=== PATIENT | male | born 1945 | race Caucasian/White ===

== ENCOUNTER 2024-06-19 15:57 | Inpatient (IN) | payer MEDICARE, SELFPAY ==
[2024-06-19 16:29] VITALS: BP 130/78; PULSE 77; RESP 18; TEMP 36.6; O2SAT 95; BMI 25.5
[2024-06-19] MEDS: Carbidopa/Levodopa 25/100 Tablet PO (18:39)
--- NOTE | 2024-06-19 20:02 | PCM.HP.STD ---
HPI - General General Date of Admission: 06/19/24 Date of Service: 06/21/24 Chief Complaint: Here for rehabilitation. HPI Narrative HANY NICHOLS, is a 78 Male who presents with followin06/04/2024 ED x-ray left hip, CT lumbar spine showed degenerative changes. Discharged home on Medrol dose pack, Tramadol, Lidoderm patches. 06/15/2024 PCP prescribed prednisone taper. MRI lumbar spine showed multi level degenerative changes similar to CT lumbar spine. Bilateral lumbar foraminal stenosis. 06/16/2024 Admit to [facility] [place] for intractable back pain. Ongoing low back pain radiating to left lateral thigh, pain medications intolerable due to confusion. Denies saddle anesthesia, no loss of bowel or bladder control. unable to care for patient at home, request placement. Pain control, Prednisone taper, Lidoderm patches. PT/OT/CM. Outpatient MRCP for dilated pancreatic duct. 06/17/2024 Back pain, right shoulder pain. Tylenol, Gabapentin, Lidoderm, Toradol, prednisone taper for low back pain. PT/OT/CM. 06/19/2024 Admit to TCU with debility, here for rehabilitation, strengthening, prior to discharge home with . [facility] Medical History (Updated 06/19/24 @ 20:[address] Isidro Titus MD) Essential (primary) hypertension Type 2 diabetes mellitus with hyperglycemia COPD (chronic obstructive pulmonary disease) History of penile cancer Anxiety Depression Lumbar radiculopathy Lumbar spinal stenosis Intractable low back pain Debility Home Medications ?Medication ?Instructions ?Recorded ?Last Taken ?Type Magnesium Chloride 64 mg PO DAILY supplement 06/05/16 06/05/16 History aspirin 81 mg chewable tablet 81 mg PO DAILY@0800 heart 06/05/16 06/19/24 History carbidopa 25 mg-levodopa 100 mg 2 tab PO 4X/DAY parkinsons 06/05/16 06/19/24 History tablet carvedilol 6.25 mg tablet (Coreg) 6.25 mg PO DAILY 06/05/16 09/20/16 History clonazepam 0.5 mg tablet 0.5 mg PO QHS sleep 06/05/16 06/04/16 History lisinopril 5 mg tablet (Zestril) 2.5 mg PO DAILY 06/05/16 09/20/16 History lorazepam 0.5 mg tablet 0.5 mg PO BID PRN PRN Anxiety 06/05/16 09/20/16 History nitroglycerin 0.4 mg sublingual 0.4 mg sublingual Q5M PRN Chest 06/05/16 Unknown History tablet Pain simvastatin 40 mg tablet 40 mg PO QHS cholesterol 06/05/16 06/18/24 History tamsulosin 0.4 mg capsule (Flomax) 0.8 mg PO DAILY urination 06/05/16 06/19/24 History venlafaxine 150 mg 150 mg PO DAILY 06/05/16 09/20/16 History capsule,extended release 24 hr ciprofloxacin HCl 500 mg tablet 500 mg PO BID ##10 09/20/16 Unknown Rx hydrocodone-acetaminophen 5-325mg 1 - 2 tab PO Q4H PRN PRN Pain ##10 09/20/16 Unknown Rx 5mg-325mg cholecalciferol (vitamin D3) 125 125 mcg PO DAILY supplement 06/19/24 Unknown History mcg (5,000 unit) capsule citalopram 20 mg tablet (Celexa) 20 mg PO DAILY mood 06/19/24 06/19/24 History cyanocobalamin (vitamin B-12) 1,000 mcg PO DAILY supplement 06/19/24 Unknown History 1,000 mcg tablet entacapone 200 mg tablet 200 mg PO 4X/DAY parkinsons 06/19/24 06/19/24 History finasteride 5 mg tablet 5 mg PO DAILY prostate 06/19/24 06/19/24 History gabapentin 300 mg capsule 300 mg PO QHS nerve pain 06/19/24 06/18/24 History lidocaine 4 % topical patch 1 patch topical DAILY pain 06/19/24 06/17/24 History mirtazapine 30 mg tablet 30 mg PO QHS RLS 06/19/24 06/18/24 History nystatin-triamcinolone topical applic topical BID rash 06/19/24 Unknown History cream oxycodone 5 mg tablet 5 mg PO Q6H PRN pain (scale score 06/19/24 06/19/24 History 6-10) pantoprazole 40 mg tablet,delayed 40 mg PO BID gerd 06/19/24 06/19/24 History release polyethylene glycol 3350 17 gram 17 g PO DAILY constipation 06/19/24 06/19/24 History oral powder packet (Miralax) prednisone 10 mg tablet 10 mg PO DAILY steriods 06/19/24 06/19/24 History sucralfate 1 gram tablet (Carafate) 1 mg PO DAILY stomach 06/19/24 Unknown History Allergy/AdvReac Type Severity Reaction Status Date / Time No Known Allergies Allergy Verified 09/17/16 13:14 Family History (Updated 06/19/24 @ 20:[address] Isidro Titus MD) Father Alzheimer disease Mother CVA (cerebral vascular accident) Brother Diabetes Brother CAD (coronary artery disease) Brother Lung cancer Brother Multiple sclerosis Sister Kidney disease Sister Rheumatoid arthritis Surgical History (Updated 06/19/24 @ 20:[address] Isidro Titus MD) History of shoulder surgery History of colonoscopy History of appendectomy History of AAA (abdominal aortic aneurysm) repair History of heart artery stent History of lithotripsy History of placement of ureteral stent History of cystoscopy Social History (Updated 06/19/24 @ 20:[address] Isidro Titus MD) household members: spouse Smoking Status: Current some day smoker tobacco type: cigarettes alcohol intake: never substance use type: does not use ROS Constitutional Constitutional: Denies chills, fever(s) or weight gain ENT HEENT: Denies headache(s), nasal congestion or nasal discharge Cardiovascular Cardiovascular: Denies chest pain or palpitations Respiratory/Chest Respiratory/Chest: Denies cough, excessive phlegm production or shortness of breath with exertion Gastrointestinal Gastrointestinal: Denies abdominal pain, nausea or vomiting Genitourinary Genitourinary: Denies dysuria Musculoskeletal Musculoskeletal: Denies joint pain or joint swelling Integumentary Integumentary: Denies rash or wounds Neurologic Neurologic: Denies focal weakness, numbness or tingling Psychiatric Psychiatric: Denies anxiety, auditory hallucinations, depression, homicidal ideation or suicidal ideation Vital Signs Vital Signs Vital Signs: 06/19/24 16:29 06/19/24 17:45 Temperature 97.8 F Temperature Source Temporal Pulse Rate 77 Pulse Rhythm Regular Pulse Strength Normal (2+) Respiratory Rate 18 Respiratory Effort Normal Non-Labored Respiratory Depth Normal Respiratory Pattern Normal Blood Pressure 130/78 H Blood Pressure Mean 95 Blood Pressure Source Monitor Pulse Ox 95 Oxygen Delivery Method Room Air Room Air Weight Weight: 87.861 kg Body Mass Index (BMI) 25.5 Physical Exam Const alert General Appearance: cooperative HEENT normocephalic Eyes PERRL and EOMs intact bilaterally Neck supple, no JVD and no carotid bruits Resp normal respiratory effort, normal air movement and clear to auscultation bilaterally Cardio regular rate and regular rhythm GI normal to inspection, nondistended, normoactive bowel sounds, non-tender and non-distended Extremity normal capillary refill General Extremity: Negative for edema Skin no rashes or lesions noted General Skin Exam: no breakdown Psych affect normal Appearance: appropriate Results Lab / Micro Data 06/20/24 06:03 06/20/24 06:03 Assessment & Plan Assessment/Plan (1) Debility: (2) Intractable low back pain: (3) Lumbar spinal stenosis: (4) Lumbar radiculopathy: (5) Parkinsons disease: (6) Coronary artery disease: (7) Hyperlipidemia: (8) Benign prostatic hypertrophy: (9) Depression: (10) Anxiety: (11) History of penile cancer: (12) COPD (chronic obstructive pulmonary disease): (13) Type 2 diabetes mellitus with hyperglycemia: (14) Essential (primary) hypertension: PLAN: Plan 78 year old male with below past medical history hospitalized for intractable low back pain 2/2 lumbar spinal stenosis, lumbar radiculopathy, admitted to TCU with debility, here for rehabilitation, strengthening, prior to discharge home with . Debility - PT/OT. Pain -Tylenol 1000mg q8, Tramadol 50mg q6 prn pain (1-5), Oxycodone 5mg q4 prn pain (6-10), Lidoderm patch 1 patch td daily. Bowel - Miralax 17gm daily, senna/colace 2 tablets bid, Magnesium citrate 300mL daily prn. Adult immunization - Administer pneumonia vaccine, covid vaccine, flu vaccine as appropriate. DVT prophylaxis - Hold Lovenox 40mg sc daily for procedure. Lumbar spinal stenosis - Prednisone 40mg taper, pain no better since hospital, consult Dr. Ma for lumbar REJI. Coronary artery disease - Aspirin 81mg daily, NTG 0.4mg sl q5m prn. Hyperlipidemia - Atorvastatin 20mg qhs. Vitamin D deficiency - D 125mcg daily. Depression - Citalopram 20mg daily, stable chronic usp use, GDR not recommended. Anxiety - Clonazepam 0.5mg to 1mg po qhs prn, stable chronic usp use, GDR not recommended. Vitamin B12 deficiency - B12 1000mcg daily. Parkinson Disease - Sinemet 25/100mg 2 tablets qid, Entacapone 200mg qid. BPH - Finasteride 5mg daily, Tamsulosin 0.8mg daily. Neuropathic pain - Gabapentin 300mg qhs. Hypomagnesemia - Magnesium chloride 6mg daily. Appetite loss/insomnia - Mirtazapine 30mg qhs. Tinea Corporis - Lotrisone topical bid. GERD - Pantoprazole 40mg bid, Sucralfate 1gm bid.
[2024-06-19] MEDS: Polyethylene Glycol 3350 17 GM PACKET PO (21:30)
[2024-06-19] MEDS: Senna/Docusate Sodium 1 Tablet 2 TABLET PO (21:31)
[2024-06-19] MEDS: Acetaminophen 500 MG Tablet 1000 MG PO (21:31)
[2024-06-19] MEDS: Nystatin/Triamcin Cream Tube 1 APPLIC TOPICAL (21:33)
[2024-06-19] MEDS: Atorvastatin Calcium 20 MG Tablet PO (21:34)
[2024-06-19] MEDS: Mirtazapine 30 MG Tablet PO (21:34)
[2024-06-19] MEDS: Gabapentin 300 MG Capsule PO (21:40)
[2024-06-20 06:20] LABS: Absolute Neutrophil Count 8.1 X10^3/uL (2.0-7.7); Basophil# 0.04 X10^3/uL; Basophil% 0.4 % (0-1); Eosinophil# 0.02 X10^3/uL; Eosinophils% 0.2 % (0-5); Hematocrit 45.3 % (40-54); Hemoglobin 15.6 g/dL (13.0-16.5); Lymphocyte % 16.7 % (19-41); Mean Corp Hgb Conc 34.4 g/dL (32-36); Mean Corpuscular Hgb 32.5 pg (27.0-32.0); Mean Corpuscular Volume 94.4 fL (80-94); Mean Platelet Vol. 9.4 fl (6.2-12.0); Monocyte# 0.74 X10^3/uL; Monocyte% 6.9 % (0-10); NRBC Flagged by Analyzer 0 % (0-5); Neutrophil # 8.09 X10^3/uL (2.7-7.7); Neutrophil % 75.1 % (47-70); Platelet Count 160 K/mm3 (150-450); RBC Distribution Width CV 12.7 % (11.6-14.6); RBC Distribution Width SD 44.4 fl (35.1-43.9); White Blood Count 10.8 K/mm3 (4.4-11.0)
[2024-06-20] MEDS: Carbidopa/Levodopa 25/100 Tablet PO ×4 (06:30→18:06)
[2024-06-20] MEDS: Enoxaparin 40 MG/0.4 ML Syringe SC (06:30)
[2024-06-20] MEDS: Acetaminophen 500 MG Tablet 1000 MG PO ×3 (06:30→20:18)
[2024-06-20] MEDS: Pantoprazole Sodium 40 MG Tablet PO ×2 (06:30→15:15)
[2024-06-20 07:17] LABS: Anion Gap 10 (5-15); BUN 36 mg/dL (4-19); BUN/Creat Ratio 26.5 RATIO (10-20); Calcium,Total 9.6 mg/dL (7.6-11.0); Carbon Dioxide 23.7 mmol/L (21.0-32.0); Chloride 103 mmol/L (98-108); Creatinine, Serum 1.34 mg/dL (0.70-1.20); EST Glomerular Filtration Rate 55 (>60); Glucose 117 mg/dL (70-99); Potassium 4.3 mmol/L (3.3-5.1); Sodium Level 137 mmol/L (133-145)
[2024-06-20] MEDS: Sucralfate 1 GM Tablet PO (08:55)
[2024-06-20] MEDS: Tamsulosin HCl 0.4 MG Capsule 0.8 MG PO (08:55)
[2024-06-20] MEDS: Citalopram 20 MG Tablet PO (08:55)
[2024-06-20] MEDS: predniSONE 10 MG Tablet PO (08:55)
[2024-06-20] MEDS: Aspirin 81 MG TAB.CHEW PO (08:55)
[2024-06-20] MEDS: Senna/Docusate Sodium 1 Tablet 2 TABLET PO (08:56)
[2024-06-20] MEDS: Magnesium Chloride 64 MG Delay Rel.Tablet PO (08:56)
[2024-06-20] MEDS: Cyanocobalamin 500 MCG Tablet 1000 MCG PO (08:56)
[2024-06-20] MEDS: Polyethylene Glycol 3350 17 GM PACKET PO (08:56)
[2024-06-20] MEDS: Finasteride 5 MG Tablet PO (08:56)
[2024-06-20] MEDS: Cholecalciferol (Vit D3) 125 MCG CAPSULE (5,000 UNITS) PO (08:57)
[2024-06-20] MEDS: Tuberculin,Purif.prot.deriv. 50 TU/ML Vial 0.1 ML ID (09:57)
[2024-06-20 10:05] VITALS: BP 94/60; PULSE 73; RESP 16; TEMP 36.3; O2SAT 95
[2024-06-20] MEDS: Ensure Plus High Protein 120 ML LIQUID PO (18:05)
[2024-06-20] MEDS: Atorvastatin Calcium 20 MG Tablet PO (20:18)
[2024-06-20] MEDS: Mirtazapine 30 MG Tablet PO (20:18)
[2024-06-20] MEDS: Gabapentin 300 MG Capsule PO (20:18)
[2024-06-20] MEDS: Nystatin/Triamcin Cream Tube 1 APPLIC TOPICAL (20:19)
[2024-06-21] MEDS: Acetaminophen 500 MG Tablet 1000 MG PO ×3 (06:46→21:04)
[2024-06-21] MEDS: Enoxaparin 40 MG/0.4 ML Syringe SC (06:46)
[2024-06-21] MEDS: Carbidopa/Levodopa 25/100 Tablet PO ×4 (06:46→18:32)
[2024-06-21] MEDS: Pantoprazole Sodium 40 MG Tablet PO ×2 (06:46→16:03)
--- NOTE | 2024-06-21 08:28 | NURSING ---
Offered covid vaccine, VIS provided. Resident declines at this time.
[2024-06-21] MEDS: Tamsulosin HCl 0.4 MG Capsule 0.8 MG PO (09:26)
[2024-06-21] MEDS: Finasteride 5 MG Tablet PO (09:26)
[2024-06-21] MEDS: Sucralfate 1 GM Tablet PO (09:26)
[2024-06-21] MEDS: Cyanocobalamin 500 MCG Tablet 1000 MCG PO (09:26)
[2024-06-21] MEDS: Aspirin 81 MG TAB.CHEW PO (09:26)
[2024-06-21] MEDS: Citalopram 20 MG Tablet PO (09:26)
[2024-06-21] MEDS: predniSONE 10 MG Tablet PO (09:26)
[2024-06-21] MEDS: Magnesium Chloride 64 MG Delay Rel.Tablet PO (09:26)
[2024-06-21] MEDS: Senna/Docusate Sodium 1 Tablet 2 TABLET PO (09:27)
[2024-06-21] MEDS: Cholecalciferol (Vit D3) 125 MCG CAPSULE (5,000 UNITS) PO (09:27)
[2024-06-21] MEDS: Ensure Plus High Protein 120 ML LIQUID PO ×3 (09:29→16:06)
[2024-06-21 09:32] VITALS: BP 104/65; PULSE 69; RESP 18; TEMP 36.2; O2SAT 94
[2024-06-21] MEDS: Lidocaine 5% Patch 1 PATCH TOPICAL (09:32)
[2024-06-21] MEDS: Nystatin/Triamcin Cream Tube 1 APPLIC TOPICAL ×2 (09:32→21:05)
--- NOTE | 2024-06-21 10:12 | CON.PCM_ITS ---
Assessment & Plan Assessment/Plan PLAN: Plan -Tylenol 1000mg Q8hr -Gabapentin Oxycodone 5mg Q4hr PO PRN Prednisone Tramadol Q6hr PRN On lovenox 40mg daily for prophy: will need to be held 12 hours prior to injection HPI Consult Data Date of Consult: 06/21/24 HPI Narrative Reason for Consultation: Left sided lumbar radiculopathy HPI Narrative: HANY NICHOLS, is a 78 M who presents to the TCU for debility and back pain. He has pain that radiates to the left lateral thigh. He has difficulty with some medications due to side effects. He was originally seen 06/04/[address] lumbar spine, which showed degenerative changes. He was sent home with Medrol dose pack, Tramadol, Lidoderm patches. About 1-2 weeks later was given prednisone taper and lumbar MRI was obtained, which showed Multilvel degenerative changes without high grade central canal stenosis. However, Left L3-L4 disc protrusion causing severe foraminal stenosis on the left. Also, Severe right5 L4-L5 and L5-S1 foraminal stenosis. He was then admitted to [facility] for back pain on 06/16/2024. Due to difficulty with the rehabilitation due to pain, Dr. Titus is requesting consideration for epidural steroid injection. [facility] Medical History (Updated 06/19/24 @ 20:[address] Isidro Titus MD) Essential (primary) hypertension Type 2 diabetes mellitus with hyperglycemia COPD (chronic obstructive pulmonary disease) History of penile cancer Anxiety Depression Lumbar radiculopathy Lumbar spinal stenosis Intractable low back pain Debility Home Medications ?Medication ?Instructions ?Recorded ?Last Taken ?Type Magnesium Chloride 64 mg PO DAILY supplement 06/05/16 History aspirin 81 mg chewable tablet 81 mg PO DAILY@0800 hear t 06/05/16 06/19/24 History carbidopa 25 mg-levodopa 100 mg 2 tab PO 4X/DAY ashley sons 06/05/16 06/19/24 History tablet carvedilol 6.25 mg tablet (Coreg) 6.25 mg PO DAILY 09/20/16 History clonazepam 0.5 mg tablet 0.5 mg PO QHS sleep 06/05/16 06/04/16 History lisinopril 5 mg tablet (Zestril) 2.5 mg PO DAILY 06/0509/20/16 History lorazepam 0.5 mg tablet 0.5 mg PO BID PRN PRN Anxiet y 06/05/16 09/20/16 History nitroglycerin 0.4 mg sublingual 0.4 mg sublingual Q5M PRN Chest 06/05/16 Unknown History tablet Pain simvastatin 40 mg tablet 40 mg PO QHS cholesterol 06/18/24 History tamsulosin 0.4 mg capsule (Flomax) 0.8 mg PO DAILY [facility] 06/05/16 06/19/24 History venlafaxine 150 mg 150 mg PO DAILY 06/05/16 History capsule,extended release 24 hr ciprofloxacin HCl 500 mg tablet 500 mg PO BID ##10 Unknown Rx hydrocodone-acetaminophen 5-325mg 1 - 2 tab PO Q4H PRN PRN Pain ##10 09/20/16 Unknown Rx 5mg-325mg cholecalciferol (vitamin D3) 125 125 mcg PO DAILY supp lement 06/19/24 Unknown History mcg (5,000 unit) capsule citalopram 20 mg tablet (Celexa) 20 mg PO DAILY mood 0 06/19/24 06/19/24 History cyanocobalamin (vitamin B-12) 1,000 mcg PO DAILY suppl ement 06/19/24 Unknown History 1,000 mcg tablet entacapone 200 mg tablet 200 mg PO 4X/DAY parkinsons 06/19/24 06/19/24 History finasteride 5 mg tablet 5 mg PO DAILY prostate 06/1906/19/24 History gabapentin 300 mg capsule 300 mg PO QHS nerve pain 03/0306/18/24 History lidocaine 4 % topical patch 1 patch topical DAILY pain 06/19/24 06/17/24 History mirtazapine 30 mg tablet 30 mg PO QHS RLS 06/19/24 History nystatin-triamcinolone topical applic topical BID rash 06/19/24 Unknown History cream oxycodone 5 mg tablet 5 mg PO Q6H PRN pain (scale score 06/19/24 06/19/24 History 6-10) pantoprazole 40 mg tablet,delayed 40 mg PO BID gerd 06/19/24 History release polyethylene glycol 3350 17 gram 17 g PO DAILY constip ation 06/19/24 06/19/24 History oral powder packet (Miralax) prednisone 10 mg tablet 10 mg PO DAILY steriods 06/0806/19/24 History sucralfate 1 gram tablet (Carafate) 1 mg PO DAILY stom ach 06/19/24 Unknown History Allergy/AdvReac Type Severity Reaction Status Date / Time No Known Allergies Allergy Verified 09/17/16 13:14 Family History (Updated 06/19/24 @ 20:[address] Isidro Titus MD) Father Alzheimer disease Mother CVA (cerebral vascular accident) Brother Diabetes Brother CAD (coronary artery disease) Brother Lung cancer Brother Multiple sclerosis Sister Kidney disease Sister Rheumatoid arthritis Surgical History (Updated 06/19/24 @ 20:[address] Isidro Titus MD) History of shoulder surgery History of colonoscopy History of appendectomy History of AAA (abdominal aortic aneurysm) repair History of heart artery stent History of lithotripsy History of placement of ureteral stent History of cystoscopy Social History (Updated 06/19/24 @ 20:[address] Isidro Titus MD) household members: spouse Smoking Status: Current some day smoker tobacco type: cigarettes alcohol intake: never substance use type: does not use Lab / Micro Data 06/20/24 06:03 06/20/24 06:03
--- NOTE | 2024-06-21 10:12 | PCM.CONS.GEN ---
Assessment & Plan Assessment/Plan (1) Lumbar radiculopathy, acute: PLAN: Plan Given the severity of his pain and debility resulting in admission to hospital and subsequent intensive therapy unit (TCU). I will plan for left L3-L4 TFESI. Hopefully, he will be able to participate in PT more easily and have improve functional outcome after the injection. Tylenol 1000mg Q8hr Gabapentin Oxycodone 5mg Q4hr PO PRN Prednisone Tramadol Q6hr PRN On lovenox 40mg daily for prophy: will need to be held 12 hours prior to injection HPI Consult Data Date of Consult: 06/21/24 HPI Narrative Reason for Consultation: Left sided lumbar radiculopathy HPI Narrative: HANY NICHOLS, is a 78 M who presents to the TCU for debility and back pain. He has pain that radiates to the left lateral thigh. He says the pain in the leg is worse than the pain in the leg. It is described as achy and shooting. It is constant. States it was 12/10 in severity initially, but has improved with medication to about 7/10 in severity. He has difficulty with some medications due to side effects. He was originally seen 06/04/2024 ED and was sent home with Medrol dose pack, Tramadol, and Lidoderm patches. About 1-2 weeks later the pain persisted and he was given prednisone taper and lumbar MRI was obtained, which showed multilvel degenerative changes without high grade central canal stenosis. Left L3-L4 disc protrusion causing severe foraminal stenosis on the left. Also, Severe right L4-L5 and L5-S1 foraminal stenosis. He was then admitted to [facility] for back pain on 06/16/2024. Due to difficulty with the rehabilitation due to pain, Dr. Titus is requesting consideration for epidural steroid injection. [facility] Medical History (Updated 06/21/24 @ 14:[address] Jorge Ma MD) Essential (primary) hypertension Type 2 diabetes mellitus with hyperglycemia COPD (chronic obstructive pulmonary disease) History of penile cancer Anxiety Depression Lumbar radiculopathy Lumbar spinal stenosis Intractable low back pain Debility Home Medications ?Medication ?Instructions ?Recorded ?Last Taken ?Type Magnesium Chloride 64 mg PO DAILY supplement 06/05/16 06/05/16 History aspirin 81 mg chewable tablet 81 mg PO DAILY@0800 heart 06/05/16 06/19/24 History carbidopa 25 mg-levodopa 100 mg 2 tab PO 4X/DAY parkinsons 06/05/16 06/19/24 History tablet carvedilol 6.25 mg tablet (Coreg) 6.25 mg PO DAILY 06/05/16 09/20/16 History clonazepam 0.5 mg tablet 0.5 mg PO QHS sleep 06/05/16 06/04/16 History lisinopril 5 mg tablet (Zestril) 2.5 mg PO DAILY 06/05/16 09/20/16 History lorazepam 0.5 mg tablet 0.5 mg PO BID PRN PRN Anxiety 06/05/16 09/20/16 History nitroglycerin 0.4 mg sublingual 0.4 mg sublingual Q5M PRN Chest 06/05/16 Unknown History tablet Pain simvastatin 40 mg tablet 40 mg PO QHS cholesterol 06/05/16 06/18/24 History tamsulosin 0.4 mg capsule (Flomax) 0.8 mg PO DAILY urination 06/05/16 06/19/24 History venlafaxine 150 mg 150 mg PO DAILY 06/05/16 09/20/16 History capsule,extended release 24 hr ciprofloxacin HCl 500 mg tablet 500 mg PO BID ##10 09/20/16 Unknown Rx hydrocodone-acetaminophen 5-325mg 1 - 2 tab PO Q4H PRN PRN Pain ##10 09/20/16 Unknown Rx 5mg-325mg cholecalciferol (vitamin D3) 125 125 mcg PO DAILY supplement 06/19/24 Unknown History mcg (5,000 unit) capsule citalopram 20 mg tablet (Celexa) 20 mg PO DAILY mood 06/19/24 06/19/24 History cyanocobalamin (vitamin B-12) 1,000 mcg PO DAILY supplement 06/19/24 Unknown History 1,000 mcg tablet entacapone 200 mg tablet 200 mg PO 4X/DAY parkinsons 06/19/24 06/19/24 History finasteride 5 mg tablet 5 mg PO DAILY prostate 06/19/24 06/19/24 History gabapentin 300 mg capsule 300 mg PO QHS nerve pain 06/19/24 06/18/24 History lidocaine 4 % topical patch 1 patch topical DAILY pain 06/19/24 06/17/24 History mirtazapine 30 mg tablet 30 mg PO QHS RLS 06/19/24 06/18/24 History nystatin-triamcinolone topical applic topical BID rash 06/19/24 Unknown History cream oxycodone 5 mg tablet 5 mg PO Q6H PRN pain (scale score 06/19/24 06/19/24 History 6-10) pantoprazole 40 mg tablet,delayed 40 mg PO BID gerd 06/19/24 06/19/24 History release polyethylene glycol 3350 17 gram 17 g PO DAILY constipation 06/19/24 06/19/24 History oral powder packet (Miralax) prednisone 10 mg tablet 10 mg PO DAILY steriods 06/19/24 06/19/24 History sucralfate 1 gram tablet (Carafate) 1 mg PO DAILY stomach 06/19/24 Unknown History Allergy/AdvReac Type Severity Reaction Status Date / Time No Known Allergies Allergy Verified 09/17/16 13:14 Family History (Updated 06/19/24 @ 20:[address] Isidro Titus MD) Father Alzheimer disease Mother CVA (cerebral vascular accident) Brother Diabetes Brother CAD (coronary artery disease) Brother Lung cancer Brother Multiple sclerosis Sister Kidney disease Sister Rheumatoid arthritis Surgical History (Updated 06/19/24 @ 20:[address] Isidro Titus MD) History of shoulder surgery History of colonoscopy History of appendectomy History of AAA (abdominal aortic aneurysm) repair History of heart artery stent History of lithotripsy History of placement of ureteral stent History of cystoscopy Social History (Updated 06/19/24 @ 20:[address] Isidro Titus MD) household members: spouse Smoking Status: Current some day smoker tobacco type: cigarettes alcohol intake: never substance use type: does not use ROS Constitutional Constitutional: Denies chills, fever(s) or weight gain ENT HEENT: Denies headache(s), nasal congestion or nasal discharge Cardiovascular Cardiovascular: Denies chest pain or palpitations Respiratory/Chest Respiratory/Chest: Denies cough, excessive phlegm production or shortness of breath with exertion Gastrointestinal Gastrointestinal: Denies abdominal pain, nausea or vomiting Genitourinary Genitourinary: Denies dysuria Musculoskeletal Musculoskeletal: Denies joint pain or joint swelling Integumentary Integumentary: Denies rash or wounds Neurologic Neurologic: Denies focal weakness, numbness or tingling Psychiatric Psychiatric: Denies anxiety, auditory hallucinations, depression, homicidal ideation or suicidal ideation Lab / Micro Data 06/20/24 06:03 06/20/24 06:03
--- NOTE | 2024-06-21 12:18 | CASEMGMT ---
Social Work, TCU Admission Note: SW met w/pt to complete initial assessment. Introduced self and role. Pt confirmed code status as [id number] No intubation. LW/POA documentation is in [employer], Anayeli is healthcare POA. Educated pt to [employer] insurance w/NRD of 06/23, and continued stay is not guaranteed. SW made pt aware will have plan of care meeting this Friday. Pt's goal is to return home w/spouse, open to home health care if needed. SW will continue to follow for discharge planning. YOLANDA Moses
[2024-06-21] MEDS: traMADol 50 MG Tablet PO ×2 (12:43→19:39)
--- NOTE | 2024-06-21 16:18 | PCM.PN.DRR ---
Documented by User: Paz Davidson 06/21/24 16:52 TCU RX Drug Regimen Review Subjective/Objective Subjective/Objective Subjective: TCU Admission. 78 YOM hospitalized for intractable low back pain 2/2 lumbar spinal stenosis, lumbar radiculopathy. Admitted to TCU with debility for strengthening and rehabilitation. Objective: Allergies No Known Allergies Allergy (Verified 09/17/16 13:14) Current Medications Generic Name Dose Route Start Last Admin Trade Name Freq PRN Reason Stop Dose Admin Acetaminophen 1,000 mg 06/19/24 22:00 06/21/24 12:45 Acetaminophen 500 Mg Tablet PO 1,000 mg Q8 AVINASH Administration Aspirin 81 mg 06/20/24 08:00 06/21/24 09:26 Aspirin 81 Mg Tab.Chew PO 81 mg BREAKFAST AVINASH Administration Atorvastatin Calcium 20 mg 06/19/24 22:00 06/20/24 20:18 Atorvastatin Calcium 20 Mg Tablet PO 20 mg QHS AVINASH Administration Carbidopa/Levodopa 2 tablet 06/19/24 19:00 06/21/24 16:03 Carbidopa/Levodopa 25/100 Tablet PO 2 tablet 0700,1100,1500,1900 AVINASH Administration Cholecalciferol 125 mcg 06/20/24 10:00 06/21/24 09:27 Cholecalciferol (Vit D3) 125 Mcg Capsule (5,000 Units) PO 125 mcg DAILY AVINASH Administration Citalopram Hydrobromide 20 mg 06/20/24 10:00 06/21/24 09:26 Citalopram 20 Mg Tablet PO 20 mg DAILY AVINASH Administration Clonazepam 0.5 - 1 mg 06/19/24 22:00 Clonazepam 0.5 Mg Tablet PO QHS PRN SLEEP Cyanocobalamin 1,000 mcg 06/20/24 10:00 06/21/24 09:26 Cyanocobalamin 500 Mcg Tablet PO 1,000 mcg DAILY AVINASH Administration Enoxaparin Sodium 40 mg 06/20/24 06:00 06/21/24 06:46 Enoxaparin 40 Mg/0.4 Ml Syringe SC 40 mg DAILY@0600 AVINASH Administration Entacapone 200 mg 06/19/24 19:00 06/21/24 16:03 Entacapone 200 Mg Tablet PO 200 mg 0700,1100,1500,1900 AIVNASH Administration Finasteride 5 mg 06/20/24 10:00 06/21/24 09:26 Finasteride 5 Mg Tablet PO 5 mg DAILY AVINASH Administration Gabapentin 300 mg 06/19/24 22:00 06/20/24 20:18 Gabapentin 300 Mg Capsule PO 300 mg QHS AVINASH Administration Lidocaine 1 patch 06/20/24 10:00 06/21/24 09:32 Lidocaine 5% Patch TOPICAL 1 patch DAILY AVINASH Administration Magnesium Chloride 64 mg 06/20/24 10:00 06/21/24 09:26 Magnesium Chloride 64 Mg Delay Rel.Tablet PO 64 mg DAILY AVINASH Administration Magnesium Citrate 300 ml 06/19/24 20:24 Magnesium Citrate 300 Ml PO DAILY PRN Constipation Mirtazapine 30 mg 06/19/24 22:00 06/20/24 20:18 Mirtazapine 30 Mg Tablet PO 30 mg QHS [facility] Administration Nitroglycerin 0.4 mg 06/19/24 17:22 Nitroglycerin (Inpatient Use) 0.4 Mg Tab.Subl SL Q5M PRN CARDIAC/CHEST PAIN Nutritional Formula (Lactose Free) 120 ml 06/20/24 17:45 06/21/24 16:06 Ensure Plus High Protein 120 Ml Liquid PO 120 ml TIDCM AVINASH Administration Nystatin/Triamcinolone Acetonide 1 applic 06/19/24 22:00 06/21/24 09:32 Nystatin/Triamcin Cream Tube TOPICAL 1 applic BID [facility] Administration Oxycodone HCl 5 mg 06/19/24 20:25 Oxycodone 5 Mg Tablet PO Q4H PRN PRN PAIN 6-10 Pantoprazole Sodium 40 mg 06/20/24 06:00 06/21/24 16:03 Pantoprazole Sodium 40 Mg Tablet PO 40 mg 0600,1600 AVINASH Administration Polyethylene Glycol 17 gm 06/19/24 20:30 06/21/24 09:35 Polyethylene Glycol 3350 17 Gm Packet PO Not Given DAILY AVINASH Prednisone 40 mg 06/20/24 08:00 06/21/24 09:26 Prednisone 10 Mg Tablet PO 06/29/24 07:59 40 mg BREAKFAST AVINASH Administration Taper Senna/Docusate Sodium 2 tablet 06/19/24 22:00 06/21/24 09:27 Senna/Docusate Sodium 1 Tablet PO 2 tablet BID AVINASH Administration Sodium Chloride 10 - 40 ml 06/19/24 16:37 0.9% Saline Lock 10 Ml Syringe IV UD PRN SALINE FLUSH Sucralfate 1 gm 06/20/24 10:00 06/21/24 09:26 Sucralfate 1 Gm Tablet PO 1 gm DAILY AVINASH Administration Tamsulosin HCl 0.8 mg 06/20/24 10:00 06/21/24 09:26 Tamsulosin Hcl 0.4 Mg Capsule PO 0.8 mg DAILY AVINASH Administration Tramadol HCl 50 mg 06/19/24 20:24 06/21/24 12:43 Tramadol 50 Mg Tablet PO 50 mg Q6H PRN PRN Administration Pain Score 1-5 or Pre PT/OT Tuberculin PPD 0.1 ml 06/27/24 10:00 Tuberculin,Purif.Prot.Deriv. 50 Tu/Ml Vial ID 06/27/24 10:01 X1 ONE Problem List Lumbar radiculopathy, acute (Acute) Essential (primary) hypertension (Acute) Type 2 diabetes mellitus with hyperglycemia (Acute) COPD (chronic obstructive pulmonary disease) (Chronic) History of penile cancer (Acute) Anxiety (Acute) Depression (Acute) Lumbar radiculopathy (Acute) Lumbar spinal stenosis (Acute) Intractable low back pain (Acute) Debility (Acute) Benign prostatic hypertrophy (Chronic) Hyperlipidemia (Chronic) Coronary artery disease (Chronic) Parkinsons disease (Chronic) Vital Signs Temp Pulse Resp BP Pulse Ox O2 Del Method 97.2 F L 69 18 104/65 94 Room Air 06/21/24 09:32 06/21/24 09:32 06/21/24 09:32 06/21/24 09:32 06/21/24 09:32 06/21/24 09:32 Oxygen Delivery Method Room Air Weight: 87.861 kg Body Mass Index (BMI) 25.5 Sodium 137 mmol/L (133-145) 06/20/24 06:03 Potassium 4.3 mmol/L (3.3-5.1) 06/20/24 06:03 Chloride 103 mmol/L (98-108) 06/20/24 06:03 Carbon Dioxide 23.7 mmol/L (21.0-32.0) 06/20/24 06:03 Anion Gap 10 (5-15) 06/20/24 06:03 BUN 36 mg/dL (4-19) H 06/20/24 06:03 Creatinine 1.34 mg/dL (0.70-1.20) H 06/20/24 06:03 Est GFR (MDRD) Non-Af 55 (>60) L 06/20/24 06:03 BUN/Creatinine Ratio 26.5 RATIO (10-20) H 06/20/24 06:03 Glucose 117 mg/dL (70-99) H 06/20/24 06:03 Assessment/Plan: 1. Pain: acetaminophen 1000mg PO Q8, tramadol 50mg PO Q6H PRN pain 1-5, oxycodone 5mg PO Q4H PRN pain 6-10 and lidocaine 5% patch 1 patch topical daily. Resident has had 1 dose of tramadol for a pain score of 6 in the leg. No doses of oxycodone given. Please continue to monitor for increased pain, renal function, PRN usage, constipation, respiratory depression and falls (Khushi). 2. Bowel: Miralax 17gm Po daily, senna/docusate 2T PO BID and magnesium citrate 300mL PO daily PRN constipation. No PRN doses given. Please continue to monitor for constipation, diarrhea and PRN usage. Last documented bowel movement was 06/21. 3. DVT prophylaxis: enoxaparin 40mg SC daily. Currently on hold due to procedure. Please continue to monitor for S/S of bleeding/DVT, hemoglobin (last 15.6g/dL), platelets (last 160,000) and renal function. 4. Lumbar spinal stenosis: prednisone taper thru 06/29/24. Dr. Ma consulted. Please continue to monitor for agitation, hunger, WBC (normal) and glucose (last 117mg/dL). 5. CAD: aspirin 81mg PO daily and nitroglycerin 0.4mg SL Q5M PRN chest pain. No PRN doses given. Please continue to monitor for S/S of bleeding, hemoglobin, PRN usage and chest pain. 6. Hyperlipidemia: atorvastatin 20mg PO QHS. Please consider ordering a lipid panel as there is no level in the chart. Please continue to monitor for muscle pain. 7. Parkinson disease: Sinemet 25/1000mg 2T PO QID and entacapone 200mg PO QID. Please continue to monitor for S/S of Parkinson, GI side effects, dyskinesia, diarrhea and nausea. 8. BPH: finasteride 5mg PO daily and tamsulosin 0.8mg PO daily. Please continue to monitor BP (last 104/65), S/S of BPH. 9. Neuropathic pain: gabapentin 300mg PO QHS. Please continue to monitor for pain, falls/fractures (BEERs), confusion and renal function. 10. GERD: pantoprazole 40mg PO BID and sucralfate 1gm PO daily. Please continue to monitor for S/S of GERD, diarrhea (BEERs), gas. 11. Tinea Corporis: Mycolog topical bid. 12. Hypomagnesemia/vitamin D and B12 deficiencies: magnesium chloride 64mg PO daily, cholecalciferol 125mcg PO daily and cyanocobalamin 1000mcg PO daily. Please consider vitamin D and B12 levels as there are no levels in the chart. Thanks. Assessment/Plan for indications treated with psychotropic medications: 1. Depression: citalopram 20mg PO daily. Please see physician note regarding GDR. Monitor for diarrhea, nausea, headache, anxiety or drowsiness, suicidal thoughts or behaviors (Boxed Warning), symptoms of bleeding, symptoms of serotonin syndrome (including agitation, confusion, hyperreflexia, rigidity/myoclonus, tremor, tachycardia, tachypnea), sodium levels (last Na = 137mmol/L). 2. Anxiety/sleep: clonazepam 0.5-1mg PO QHS PRN sleep. Please see physician note regarding GDR. No PRN doses have been given. If receiving doses; please monitor for sedation, mental status and cognition, falls (risk factor for falls/implement fall prevention strategies), respiratory depression. 3. Appetite loss/insomnia: mirtazapine 30mg PO QHS. Please consider GDR by 12/2024 if clinically indicated. Please continue to monitor for appetite improvement, suicidal ideation (black box warning), excessive daytime drowsiness and sodium. Medical chart and medication regimen reviewed. The following medication irregularities or issues were identified: 1. Atorvastatin 20mg PO QHS. Please consider ordering a lipid panel as there is no level in the chart. Thanks. 2. Mirtazapine 30mg PO QHS. Please consider GDR by 12/2024 if clinically indicated. 3. Cholecalciferol 125mcg PO daily and cyanocobalamin 1000mcg PO daily. Please consider vitamin D and B12 levels as there are no levels in the chart. Thanks. Date Date of Note: 04/14/25 Documented by User: Dr. Isidro Titus MD 06/21/24 17:24 TCU RX Drug Regimen Review Provider Comments Provider responsibility Provider Comments to Recommendations by Pharmacy Agree
[2024-06-21] MEDS: Atorvastatin Calcium 20 MG Tablet PO (21:04)
[2024-06-21] MEDS: Mirtazapine 30 MG Tablet PO (21:04)
[2024-06-21] MEDS: Gabapentin 300 MG Capsule PO (21:04)
[2024-06-22] MEDS: traMADol 50 MG Tablet PO ×2 (05:58→20:22)
[2024-06-22] MEDS: Pantoprazole Sodium 40 MG Tablet PO ×2 (05:58→17:15)
[2024-06-22] MEDS: Acetaminophen 500 MG Tablet 1000 MG PO ×3 (05:58→21:58)
[2024-06-22] MEDS: Carbidopa/Levodopa 25/100 Tablet PO ×3 (06:00→18:25)
[2024-06-22 06:49] LABS: Cholesterol 135 mg/dL (<=200); High Density Lipoprotein 41 mg/dL; Low Density Lipoprotein Calc. 56 mg/dL; Triglycerides 190 mg/dL; Very Low Density Lipoprotein 38 mg/dL (5-40); Vitamin B12 1259 pg/mL (180-914); Vitamin D,25 Hydroxy 75.9 ng/mL (30-100); cholesterol:hdl ratio screen 3.32
--- NOTE | 2024-06-22 07:49 | NURSING ---
PT B12 HIGH 1259. PT GETS B12 1000MCG KATINA. MESSAGED AND STATED TO STILL GIVE. RN AWARE
[2024-06-22] MEDS: Ensure Plus High Protein 120 ML LIQUID PO ×3 (08:23→17:14)
[2024-06-22] MEDS: Aspirin 81 MG TAB.CHEW PO (08:24)
[2024-06-22] MEDS: predniSONE 10 MG Tablet PO (08:24)
[2024-06-22] MEDS: Citalopram 20 MG Tablet PO (08:25)
[2024-06-22] MEDS: Tamsulosin HCl 0.4 MG Capsule 0.8 MG PO (08:25)
[2024-06-22] MEDS: Lidocaine 5% Patch 1 PATCH TOPICAL (08:26)
[2024-06-22] MEDS: Magnesium Chloride 64 MG Delay Rel.Tablet PO (08:27)
[2024-06-22 08:31] VITALS: BP 110/69; PULSE 73; RESP 16; TEMP 36.6; O2SAT 93
[2024-06-22] MEDS: Nystatin/Triamcin Cream Tube 1 APPLIC TOPICAL ×2 (08:36→21:57)
[2024-06-22] MEDS: Finasteride 5 MG Tablet PO (08:38)
[2024-06-22] MEDS: Cyanocobalamin 500 MCG Tablet 1000 MCG PO (08:38)
[2024-06-22] MEDS: Cholecalciferol (Vit D3) 125 MCG CAPSULE (5,000 UNITS) PO (08:39)
[2024-06-22] MEDS: Sucralfate 1 GM Tablet PO (08:42)
[2024-06-22] MEDS: oxyCODONE 5 MG Tablet PO (08:42)
--- NOTE | 2024-06-22 10:35 | NURSING ---
PT LEFT FLOOR AT 1015 BY BED FOR PROCEDURE/INJECTION WITH .
--- NOTE | 2024-06-22 13:03 | NURSING ---
PT RETURNED TO FLOOR BY BED AT 1250 FROM PROCEDURE WITH . NO NEW ORDERS.
[2024-06-22 13:45] VITALS: PULSE 76; RESP 16; O2SAT 92
[2024-06-22 13:59] VITALS: BMI 25.0
--- NOTE | 2024-06-22 14:26 | CHAPLAIN ---
Type of Pastoral Visit _x__ Initial Visit ___ Follow-up Visit ___ On-call Visit ___ General Patient Visit ___ Spiritual Assessment ___ Family Conference ___ Bereavement ___ Rapid Response ___ Code Blue ___ Other (describe below) Pastoral Care Referral From _x__ Patient _x__ Family ___ Nurse ___ Physician ___ Shipping Weigher ___ Documentation Clerk ___ Other (describe below) Sacrament/Intervention _x__ Active listening ___ Anointing ___ Voodoo ___ Bereavement ___ Communion ___ Sabiha exploration ___ _x__ Life review ___ Prayer ___ Reconciliation ___ Sacrament of Sick ___ Supportive presence ___ Wedding ___ Other (describe below) Pastoral Comments patient and spouse are in the room; pt had a procedure a couple hours ago; discovery that this couple and this automobile brakes bonder live in same community and know many of the same people; good casual conversation but pt denies any needs or concerns; pt is feeling good since he had numbing procedure earlier; is more realistic about the stay and what will be needed before discharge
--- NOTE | 2024-06-22 17:03 | OP.PCM_ITS ---
Problems Associated Problem List Diagnoses (1) Lumbar radiculopathy, acute: Operative Report (Standard) Operative Information Date of Procedure: 06/22/24 Pre-Operative Diagnosis: Lumbar radiculopathy Post-Operative Diagnosis: Same Surgery/Procedure Performed: Left L3-L4 TFESI clerk analyst: No Type of Anesthesia: Local Procedure Start Time: 11:55 (Proper times per nursing records) Procedure Stop Time: 12:02 (Proper times per nursing records) Select all DRAINS/GRAFTS/IMPLANTS that apply: None Estimated Blood Loss: nil Specimen collected: No Description of surgery: Vital signs were checked and the patient was moved to the procedure area and placed in the prone position. Sterile prep and drape was performed in a regular manner. Using fluoroscopic guidance, the required level was identified under AP and oblique views. Local anesthesia was administered using 25g needle using bupivacaine 0.25% to anesthetize the skin and subcutaneous tissue. A 22- gauge spinal needle was placed under fluoroscopic guidance until reaching the 6 o`clock position of the pedicle above the desired foramen, the needle was gradually walked down to the upper portion of the desired foramen, and the needle was then slightly advanced into the foramen. The position was confirmed with fluoroscopy using AP lateral and oblique views as required. Contrast material, Omnipaque 2cc was injected under fluoroscopic guidance and showed appropriate epidurogram, epidural spread. Negative blood and CSF aspiration was confirmed. The same procedure was repeated at each desired level. After confirmation of needles position, a mixture of 2 cc Bupivacaine 0.25% and 40 mg of kenalog was injected and divided between the levels. The patient tolerated the procedure well. [place] were removed intact. The patient was cleansed and Band-Aid was applied. Surgical Findings: n/a Complications Complications: No
[2024-06-22] MEDS: Mirtazapine 30 MG Tablet PO (21:57)
[2024-06-22] MEDS: Gabapentin 300 MG Capsule PO (21:57)
[2024-06-22] MEDS: Atorvastatin Calcium 20 MG Tablet PO (21:58)
[2024-06-23] MEDS: Enoxaparin 40 MG/0.4 ML Syringe SC (06:02)
[2024-06-23] MEDS: Acetaminophen 500 MG Tablet 1000 MG PO ×3 (06:02→22:40)
[2024-06-23] MEDS: Carbidopa/Levodopa 25/100 Tablet PO ×4 (06:02→18:25)
[2024-06-23] MEDS: Pantoprazole Sodium 40 MG Tablet PO ×2 (06:02→16:35)
--- NOTE | 2024-06-23 08:47 | NURSING ---
Space Operations Note; Activity Asset: Mili Mena is independent in his choice of daily activities w/reminders. His stated he never leaves the house and he has been this way for years. He prefers to read the paper and watch tv. He welcomes visits w/the therapy dog. Staff will offer the daily newspaper and other room activities and respect his right to say no. His will be her daily and bring him items he may need.
[2024-06-23] MEDS: Ensure Plus High Protein 120 ML LIQUID PO ×3 (08:48→22:36)
[2024-06-23] MEDS: Nystatin/Triamcin Cream Tube 1 APPLIC TOPICAL ×2 (08:48→22:37)
[2024-06-23] MEDS: Lidocaine 5% Patch 1 PATCH TOPICAL (08:48)
[2024-06-23] MEDS: Finasteride 5 MG Tablet PO (08:49)
[2024-06-23] MEDS: Sucralfate 1 GM Tablet PO (08:50)
[2024-06-23] MEDS: Magnesium Chloride 64 MG Delay Rel.Tablet PO (08:50)
[2024-06-23] MEDS: Tamsulosin HCl 0.4 MG Capsule 0.8 MG PO (08:50)
[2024-06-23] MEDS: Cyanocobalamin 500 MCG Tablet 1000 MCG PO (08:51)
[2024-06-23] MEDS: Citalopram 20 MG Tablet PO (08:51)
[2024-06-23] MEDS: predniSONE 10 MG Tablet PO (08:51)
[2024-06-23] MEDS: Cholecalciferol (Vit D3) 125 MCG CAPSULE (5,000 UNITS) PO (08:51)
[2024-06-23] MEDS: Aspirin 81 MG TAB.CHEW PO (08:52)
[2024-06-23 09:00] VITALS: BP 104/59; PULSE 71; RESP 18; TEMP 36.3; O2SAT 96
--- NOTE | 2024-06-23 09:22 | CASEMGMT ---
Social Work IDT met with patient, and dtr for care plan meeting. Discussed patient's progress in PT/OT/ST/SN. Educated to [facility] insurance with NRD 06/23 and continued stay is not guaranteed with each review. Provided pt/family with written communication of insurance process and copay coverage during stay. SW inquired about DC plan and what 's assistance level can be at DC. stated pt was able to amublate, tx, toilet and dress at home prior, and it was getting hard. does have active social life. SW educated to hiring AUTOMATIC QUILLING MACHINE OPERATOR, pt attending [facility], and [facility]. However, current recommendations are for pt to not be alone. Reiterated pt is max-total assist currently. Encouraged family to discuss what LOF can assist with. Educated to short term SNF at DC, if pt cannot improve to a level needs. Educated to OOP for all nonskilled services. SW to coordinate skilled therapy that is covered by insurance. SW explained in detail insurance reviews pt's information [id number], and they are reviewing for pt meeting criteria and LCD does not indicate pt is ready to DC or has returned to baseline. Offered Parkinson's support group and [facility] programs. and pt denied as pt does not like to socialize. SW offered resources; accepted. Resources provided along with this worker's contact information. Family appreciative. SW will continue to follow for DC planning. Ninfa Lopez PEDIATRIC ASSOCIATE SKIP PIT WORKER
[2024-06-23 10:10] VITALS: PULSE 71; RESP 16; O2SAT 96
[2024-06-23] MEDS: oxyCODONE 5 MG Tablet PO (11:25)
[2024-06-23] MEDS: BACITRACIN 15 GM Tube 1 APPLIC TOPICAL (22:36)
[2024-06-23] MEDS: Gabapentin 300 MG Capsule PO (22:37)
[2024-06-23] MEDS: Atorvastatin Calcium 20 MG Tablet PO (22:37)
[2024-06-23] MEDS: Mirtazapine 30 MG Tablet PO (22:39)
[2024-06-24] MEDS: Pantoprazole Sodium 40 MG Tablet PO ×2 (06:16→15:34)
[2024-06-24] MEDS: Ensure Plus High Protein 120 ML LIQUID PO ×3 (06:16→18:16)
[2024-06-24] MEDS: Enoxaparin 40 MG/0.4 ML Syringe SC (06:16)
[2024-06-24] MEDS: Acetaminophen 500 MG Tablet 1000 MG PO ×3 (06:17→22:32)
[2024-06-24] MEDS: Carbidopa/Levodopa 25/100 Tablet PO ×4 (06:17→18:16)
[2024-06-24 08:37] VITALS: BP 104/64; PULSE 70; RESP 16; TEMP 36.5; O2SAT 95
[2024-06-24] MEDS: Aspirin 81 MG TAB.CHEW PO (08:41)
[2024-06-24] MEDS: Sucralfate 1 GM Tablet PO (08:41)
[2024-06-24] MEDS: predniSONE 10 MG Tablet PO (08:41)
[2024-06-24] MEDS: Magnesium Chloride 64 MG Delay Rel.Tablet PO (08:42)
[2024-06-24] MEDS: Tamsulosin HCl 0.4 MG Capsule 0.8 MG PO (08:42)
[2024-06-24] MEDS: Citalopram 20 MG Tablet PO (08:42)
[2024-06-24] MEDS: Finasteride 5 MG Tablet PO (08:43)
[2024-06-24] MEDS: Cyanocobalamin 500 MCG Tablet 1000 MCG PO (08:43)
[2024-06-24] MEDS: Cholecalciferol (Vit D3) 125 MCG CAPSULE (5,000 UNITS) PO (08:43)
[2024-06-24] MEDS: Polyethylene Glycol 3350 17 GM PACKET PO (08:44)
[2024-06-24] MEDS: BACITRACIN 15 GM Tube 1 APPLIC TOPICAL ×2 (08:44→22:30)
[2024-06-24] MEDS: Lidocaine 5% Patch 1 PATCH TOPICAL (08:44)
[2024-06-24] MEDS: Nystatin/Triamcin Cream Tube 1 APPLIC TOPICAL ×2 (08:45→22:31)
[2024-06-24] MEDS: oxyCODONE 5 MG Tablet PO (11:01)
--- NOTE | 2024-06-24 11:49 | MDS.RN ---
Pain assessment for MDS complete.
[2024-06-24 13:17] VITALS: PULSE 79; RESP 16; O2SAT 96
[2024-06-24] MEDS: Atorvastatin Calcium 20 MG Tablet PO (22:31)
[2024-06-24] MEDS: Gabapentin 300 MG Capsule PO (22:31)
[2024-06-24] MEDS: Senna/Docusate Sodium 1 Tablet 2 TABLET PO (22:32)
[2024-06-24] MEDS: Mirtazapine 30 MG Tablet PO (22:34)
[2024-06-25] MEDS: Acetaminophen 500 MG Tablet 1000 MG PO ×3 (06:49→21:01)
[2024-06-25] MEDS: Carbidopa/Levodopa 25/100 Tablet PO ×4 (06:49→18:47)
[2024-06-25] MEDS: Enoxaparin 40 MG/0.4 ML Syringe SC (06:49)
[2024-06-25] MEDS: Ensure Plus High Protein 120 ML LIQUID PO ×3 (06:49→16:23)
[2024-06-25] MEDS: Pantoprazole Sodium 40 MG Tablet PO ×2 (06:49→16:25)
[2024-06-25] MEDS: Sucralfate 1 GM Tablet PO (09:32)
[2024-06-25] MEDS: predniSONE 10 MG Tablet PO (09:32)
[2024-06-25] MEDS: BACITRACIN 15 GM Tube 1 APPLIC TOPICAL ×2 (09:32→21:00)
[2024-06-25] MEDS: Aspirin 81 MG TAB.CHEW PO (09:33)
[2024-06-25] MEDS: Citalopram 20 MG Tablet PO (09:34)
[2024-06-25] MEDS: Magnesium Chloride 64 MG Delay Rel.Tablet PO (09:34)
[2024-06-25] MEDS: Tamsulosin HCl 0.4 MG Capsule 0.8 MG PO (09:34)
[2024-06-25] MEDS: Polyethylene Glycol 3350 17 GM PACKET PO (09:34)
[2024-06-25] MEDS: Lidocaine 5% Patch 1 PATCH TOPICAL (09:34)
[2024-06-25] MEDS: Nystatin/Triamcin Cream Tube 1 APPLIC TOPICAL ×2 (09:35→21:00)
[2024-06-25] MEDS: Finasteride 5 MG Tablet PO (09:35)
[2024-06-25] MEDS: Cholecalciferol (Vit D3) 125 MCG CAPSULE (5,000 UNITS) PO (09:37)
[2024-06-25] MEDS: oxyCODONE 5 MG Tablet PO (09:45)
[2024-06-25 09:50] VITALS: BP 107/72; PULSE 75; RESP 16; TEMP 36.3; O2SAT 96
[2024-06-25 10:00] VITALS: PULSE 75; RESP 16; O2SAT 96
[2024-06-25] MEDS: Cyanocobalamin 500 MCG Tablet 1000 MCG PO (11:03)
--- NOTE | 2024-06-25 13:13 | CASEMGMT ---
Social Work SW completed BIMS (09/21) and PHQ-2 () for MDS assessment. Ninfa Lopez BIOFUELS TECHNOLOGY MANAGER FORENSIC INVESTIGATOR
[2024-06-25] MEDS: Atorvastatin Calcium 20 MG Tablet PO (21:00)
[2024-06-25] MEDS: Gabapentin 300 MG Capsule PO (21:00)
[2024-06-25] MEDS: Mirtazapine 30 MG Tablet PO (21:01)
[2024-06-25] MEDS: Senna/Docusate Sodium 1 Tablet 2 TABLET PO (21:01)
[2024-06-25] MEDS: Menthol/Lanolin/Calamine/Znox 113 GM Tube 1 APPLIC TOPICAL (21:07)
[2024-06-26] MEDS: Ensure Plus High Protein 120 ML LIQUID PO ×4 (06:01→20:45)
[2024-06-26] MEDS: Carbidopa/Levodopa 25/100 Tablet PO ×4 (06:01→18:11)
[2024-06-26] MEDS: Pantoprazole Sodium 40 MG Tablet PO ×2 (06:01→16:58)
[2024-06-26] MEDS: Acetaminophen 500 MG Tablet 1000 MG PO ×3 (06:01→20:49)
[2024-06-26] MEDS: Enoxaparin 40 MG/0.4 ML Syringe SC (06:01)
[2024-06-26] MEDS: Nystatin/Triamcin Cream Tube 1 APPLIC TOPICAL ×2 (09:16→20:45)
[2024-06-26] MEDS: Aspirin 81 MG TAB.CHEW PO (09:16)
[2024-06-26] MEDS: BACITRACIN 15 GM Tube 1 APPLIC TOPICAL ×2 (09:16→20:44)
[2024-06-26] MEDS: Menthol/Lanolin/Calamine/Znox 113 GM Tube 1 APPLIC TOPICAL ×2 (09:17→20:44)
[2024-06-26] MEDS: Sucralfate 1 GM Tablet PO (09:17)
[2024-06-26] MEDS: Polyethylene Glycol 3350 17 GM PACKET PO (09:18)
[2024-06-26] MEDS: Lidocaine 5% Patch 1 PATCH TOPICAL (09:18)
[2024-06-26] MEDS: Senna/Docusate Sodium 1 Tablet 2 TABLET PO ×2 (09:18→20:48)
[2024-06-26] MEDS: Magnesium Chloride 64 MG Delay Rel.Tablet PO (09:18)
[2024-06-26] MEDS: Cholecalciferol (Vit D3) 125 MCG CAPSULE (5,000 UNITS) PO (09:18)
[2024-06-26] MEDS: Cyanocobalamin 500 MCG Tablet 1000 MCG PO (09:18)
[2024-06-26] MEDS: Finasteride 5 MG Tablet PO (09:18)
[2024-06-26] MEDS: Citalopram 20 MG Tablet PO (09:18)
[2024-06-26] MEDS: Tamsulosin HCl 0.4 MG Capsule 0.8 MG PO (09:18)
[2024-06-26] MEDS: predniSONE 10 MG Tablet PO (09:42)
[2024-06-26 09:49] VITALS: BP 114/67; PULSE 70; RESP 17; TEMP 36.4; O2SAT 96
[2024-06-26] MEDS: Atorvastatin Calcium 20 MG Tablet PO (20:48)
[2024-06-26] MEDS: Mirtazapine 30 MG Tablet PO (20:50)
[2024-06-26] MEDS: Gabapentin 300 MG Capsule PO (20:55)
[2024-06-27] MEDS: Enoxaparin 40 MG/0.4 ML Syringe SC (06:02)
[2024-06-27] MEDS: Carbidopa/Levodopa 25/100 Tablet PO ×4 (06:03→18:25)
[2024-06-27] MEDS: Acetaminophen 500 MG Tablet 1000 MG PO ×3 (06:03→22:45)
[2024-06-27] MEDS: Ensure Plus High Protein 120 ML LIQUID PO ×4 (06:03→22:42)
[2024-06-27] MEDS: Pantoprazole Sodium 40 MG Tablet PO ×2 (06:03→15:46)
[2024-06-27] MEDS: predniSONE 10 MG Tablet PO (09:38)
[2024-06-27] MEDS: Aspirin 81 MG TAB.CHEW PO (09:38)
[2024-06-27] MEDS: Nystatin/Triamcin Cream Tube 1 APPLIC TOPICAL ×2 (09:39→22:43)
[2024-06-27] MEDS: Sucralfate 1 GM Tablet PO (09:39)
[2024-06-27] MEDS: Polyethylene Glycol 3350 17 GM PACKET PO (09:39)
[2024-06-27] MEDS: Magnesium Chloride 64 MG Delay Rel.Tablet PO (09:39)
[2024-06-27] MEDS: Citalopram 20 MG Tablet PO (09:39)
[2024-06-27] MEDS: Tamsulosin HCl 0.4 MG Capsule 0.8 MG PO (09:39)
[2024-06-27] MEDS: BACITRACIN 15 GM Tube 1 APPLIC TOPICAL ×2 (09:39→22:43)
[2024-06-27] MEDS: Menthol/Lanolin/Calamine/Znox 113 GM Tube 1 APPLIC TOPICAL ×2 (09:39→22:43)
[2024-06-27] MEDS: Lidocaine 5% Patch 1 PATCH TOPICAL (09:39)
[2024-06-27] MEDS: Finasteride 5 MG Tablet PO (09:40)
[2024-06-27] MEDS: Senna/Docusate Sodium 1 Tablet 2 TABLET PO ×2 (09:40→22:45)
[2024-06-27] MEDS: Cyanocobalamin 500 MCG Tablet 1000 MCG PO (09:40)
[2024-06-27] MEDS: Cholecalciferol (Vit D3) 125 MCG CAPSULE (5,000 UNITS) PO (09:40)
[2024-06-27 10:13] VITALS: BP 102/58; PULSE 67; RESP 16; TEMP 36.7; O2SAT 95
[2024-06-27] MEDS: Tuberculin,Purif.prot.deriv. 50 TU/ML Vial 0.1 ML ID (11:45)
[2024-06-27] MEDS: Gabapentin 300 MG Capsule PO (22:42)
[2024-06-27] MEDS: Atorvastatin Calcium 20 MG Tablet PO (22:43)
[2024-06-27] MEDS: Mirtazapine 30 MG Tablet PO (22:44)
[2024-06-28] MEDS: Enoxaparin 40 MG/0.4 ML Syringe SC (06:46)
[2024-06-28] MEDS: Pantoprazole Sodium 40 MG Tablet PO ×2 (06:46→17:35)
[2024-06-28] MEDS: Ensure Plus High Protein 120 ML LIQUID PO ×4 (06:46→23:00)
[2024-06-28] MEDS: Acetaminophen 500 MG Tablet 1000 MG PO ×3 (06:46→22:55)
[2024-06-28] MEDS: Carbidopa/Levodopa 25/100 Tablet PO ×4 (06:47→18:27)
[2024-06-28 08:18] LABS: Absolute Lymphocyte Count 1.65 X10^3/uL (0.83-4.51); Absolute Neutrophil Count 5.4 X10^3/uL (2.0-7.7); Basophil# 0.06 X10^3/uL; Basophil% 0.8 % (0-1); Eosinophil# 0.06 X10^3/uL; Eosinophils% 0.8 % (0-5); Hematocrit 46.7 % (40-54); Hemoglobin 16.3 g/dL (13.0-16.5); Lymphocyte # 1.65 X10^3/ul (0.83-4.51); Lymphocyte % 21.3 % (19-41); Mean Corp Hgb Conc 34.9 g/dL (32-36); Mean Corpuscular Hgb 32.8 pg (27.0-32.0); Mean Platelet Vol. 9.3 fl (6.2-12.0); Monocyte% 5.2 % (0-10); NRBC Flagged by Analyzer 0 % (0-5); Neutrophil # 5.42 X10^3/uL (2.7-7.7); Platelet Count 148 K/mm3 (150-450); RBC Distribution Width CV 12.8 % (11.6-14.6); RBC Distribution Width SD 43.9 fl (35.1-43.9); Red Blood Count 4.97 M/mm3 (4.6-6.2); White Blood Count 7.7 K/mm3 (4.4-11.0)
--- NOTE | 2024-06-28 08:57 | NURSING ---
Veterinary Radiologist Note; MDS for 06/26/2024 Complete
[2024-06-28 08:59] VITALS: BP 103/66; PULSE 75; RESP 16; TEMP 36.2; O2SAT 95
[2024-06-28] MEDS: Finasteride 5 MG Tablet PO (09:05)
[2024-06-28] MEDS: Magnesium Chloride 64 MG Delay Rel.Tablet PO (09:05)
[2024-06-28] MEDS: Cyanocobalamin 500 MCG Tablet 1000 MCG PO (09:05)
[2024-06-28] MEDS: Citalopram 20 MG Tablet PO (09:05)
[2024-06-28] MEDS: Tamsulosin HCl 0.4 MG Capsule 0.8 MG PO (09:05)
[2024-06-28] MEDS: Cholecalciferol (Vit D3) 125 MCG CAPSULE (5,000 UNITS) PO (09:05)
[2024-06-28] MEDS: Sucralfate 1 GM Tablet PO (09:05)
[2024-06-28] MEDS: Senna/Docusate Sodium 1 Tablet 2 TABLET PO ×2 (09:05→22:56)
[2024-06-28] MEDS: predniSONE 10 MG Tablet PO (09:06)
[2024-06-28] MEDS: Aspirin 81 MG TAB.CHEW PO (09:06)
[2024-06-28] MEDS: Lidocaine 5% Patch 1 PATCH TOPICAL (09:06)
[2024-06-28] MEDS: BACITRACIN 15 GM Tube 1 APPLIC TOPICAL ×2 (09:06→22:57)
[2024-06-28] MEDS: Polyethylene Glycol 3350 17 GM PACKET PO (09:06)
[2024-06-28] MEDS: Nystatin/Triamcin Cream Tube 1 APPLIC TOPICAL ×2 (09:07→22:57)
[2024-06-28] MEDS: Menthol/Lanolin/Calamine/Znox 113 GM Tube 1 APPLIC TOPICAL ×2 (09:08→23:03)
[2024-06-28] MEDS: traMADol 50 MG Tablet PO (09:13)
[2024-06-28 09:20] LABS: Anion Gap 11 (5-15); BUN 34 mg/dL (4-19); BUN/Creat Ratio 28.2 RATIO (10-20); Calcium,Total 9.9 mg/dL (7.6-11.0); Chloride 102 mmol/L (98-108); Creatinine, Serum 1.22 mg/dL (0.70-1.20); EST Glomerular Filtration Rate 61 (>60); Estimated Creatinine Clearance 58.21 ml/min (50-250); Glucose 170 mg/dL (70-99); Potassium 4.2 mmol/L (3.3-5.1); Sodium Level 136 mmol/L (133-145)
[2024-06-28 15:05] VITALS: PULSE 83; RESP 16; O2SAT 94
--- NOTE | 2024-06-28 18:26 | NURSING ---
had dr montenegro assess pt head of penis, 3 small black bumps noted, bacitracin ordered last week, no new orders.
[2024-06-28] MEDS: Gabapentin 300 MG Capsule PO (22:55)
[2024-06-28] MEDS: Atorvastatin Calcium 20 MG Tablet PO (22:56)
[2024-06-28] MEDS: Mirtazapine 30 MG Tablet PO (22:56)
[2024-06-29] MEDS: Enoxaparin 40 MG/0.4 ML Syringe SC (06:43)
[2024-06-29] MEDS: Acetaminophen 500 MG Tablet 1000 MG PO ×3 (06:44→21:25)
[2024-06-29] MEDS: Pantoprazole Sodium 40 MG Tablet PO ×2 (06:44→16:59)
[2024-06-29] MEDS: Carbidopa/Levodopa 25/100 Tablet PO ×4 (06:44→18:28)
[2024-06-29] MEDS: Ensure Plus High Protein 120 ML LIQUID PO ×4 (06:44→21:24)
[2024-06-29] MEDS: Aspirin 81 MG TAB.CHEW PO (10:43)
[2024-06-29] MEDS: BACITRACIN 15 GM Tube 1 APPLIC TOPICAL ×2 (10:43→21:22)
[2024-06-29] MEDS: Menthol/Lanolin/Calamine/Znox 113 GM Tube 1 APPLIC TOPICAL ×2 (10:43→21:23)
[2024-06-29] MEDS: Citalopram 20 MG Tablet PO (10:44)
[2024-06-29] MEDS: Lidocaine 5% Patch 1 PATCH TOPICAL (10:44)
[2024-06-29] MEDS: Tamsulosin HCl 0.4 MG Capsule 0.8 MG PO (10:44)
[2024-06-29] MEDS: Sucralfate 1 GM Tablet PO (10:44)
[2024-06-29] MEDS: Nystatin/Triamcin Cream Tube 1 APPLIC TOPICAL ×2 (10:45→21:22)
[2024-06-29] MEDS: Magnesium Chloride 64 MG Delay Rel.Tablet PO (10:45)
[2024-06-29] MEDS: Polyethylene Glycol 3350 17 GM PACKET PO (10:45)
[2024-06-29] MEDS: Cyanocobalamin 500 MCG Tablet 1000 MCG PO (10:46)
[2024-06-29] MEDS: Senna/Docusate Sodium 1 Tablet 2 TABLET PO ×2 (10:46→21:26)
[2024-06-29] MEDS: Finasteride 5 MG Tablet PO (10:46)
[2024-06-29] MEDS: Cholecalciferol (Vit D3) 125 MCG CAPSULE (5,000 UNITS) PO (10:47)
[2024-06-29 11:04] VITALS: BP 101/61; PULSE 74; RESP 14; TEMP 36.4; O2SAT 97
[2024-06-29 11:24] VITALS: BMI 25.0
--- NOTE | 2024-06-29 15:25 | NURSING ---
CALLED AND UPDATED PT TODAY. ALSO STATED SHE IS OUT OF TOWN THREW 07/05/24. IF STAFF CAN NOT GET A HOLD OF , STATED TO CALL HER DAUGHTER NUZHAT.
[2024-06-29 20:00] VITALS: PULSE 80; O2SAT 95
[2024-06-29] MEDS: Gabapentin 300 MG Capsule PO (21:24)
[2024-06-29] MEDS: Mirtazapine 30 MG Tablet PO (21:27)
[2024-06-29] MEDS: Atorvastatin Calcium 20 MG Tablet PO (21:28)
[2024-06-30] MEDS: Enoxaparin 40 MG/0.4 ML Syringe SC (06:02)
[2024-06-30] MEDS: Pantoprazole Sodium 40 MG Tablet PO ×2 (06:02→16:19)
[2024-06-30] MEDS: Ensure Plus High Protein 120 ML LIQUID PO ×4 (06:02→20:53)
[2024-06-30] MEDS: Carbidopa/Levodopa 25/100 Tablet PO ×4 (06:03→18:35)
[2024-06-30] MEDS: Acetaminophen 500 MG Tablet 1000 MG PO ×3 (06:03→20:55)
[2024-06-30] MEDS: Nystatin/Triamcin Cream Tube 1 APPLIC TOPICAL (10:28)
[2024-06-30] MEDS: BACITRACIN 15 GM Tube 1 APPLIC TOPICAL ×2 (10:28→20:57)
[2024-06-30] MEDS: Polyethylene Glycol 3350 17 GM PACKET PO (10:29)
[2024-06-30] MEDS: Menthol/Lanolin/Calamine/Znox 113 GM Tube 1 APPLIC TOPICAL ×2 (10:29→21:00)
[2024-06-30] MEDS: Lidocaine 5% Patch 1 PATCH TOPICAL (10:29)
[2024-06-30] MEDS: Magnesium Chloride 64 MG Delay Rel.Tablet PO (10:30)
[2024-06-30] MEDS: Citalopram 20 MG Tablet PO (10:30)
[2024-06-30] MEDS: Senna/Docusate Sodium 1 Tablet 2 TABLET PO (10:30)
[2024-06-30] MEDS: Cyanocobalamin 500 MCG Tablet 1000 MCG PO (10:31)
[2024-06-30] MEDS: Aspirin 81 MG TAB.CHEW PO (10:31)
[2024-06-30] MEDS: Tamsulosin HCl 0.4 MG Capsule 0.8 MG PO (10:31)
[2024-06-30] MEDS: Finasteride 5 MG Tablet PO (10:32)
[2024-06-30] MEDS: Cholecalciferol (Vit D3) 125 MCG CAPSULE (5,000 UNITS) PO (10:34)
[2024-06-30] MEDS: Sucralfate 1 GM Tablet PO (10:34)
[2024-06-30 10:45] VITALS: BP 113/64; PULSE 77; RESP 16; TEMP 36.3; O2SAT 96
[2024-06-30] MEDS: Gabapentin 300 MG Capsule PO (20:54)
[2024-06-30] MEDS: Atorvastatin Calcium 20 MG Tablet PO (20:55)
[2024-06-30] MEDS: Mirtazapine 30 MG Tablet PO (20:55)
[2024-07-01] MEDS: Ensure Plus High Protein 120 ML LIQUID PO ×4 (06:27→21:33)
[2024-07-01] MEDS: Carbidopa/Levodopa 25/100 Tablet PO ×4 (06:27→18:30)
[2024-07-01] MEDS: Pantoprazole Sodium 40 MG Tablet PO ×2 (06:27→17:07)
[2024-07-01] MEDS: Enoxaparin 40 MG/0.4 ML Syringe SC (06:28)
[2024-07-01] MEDS: Acetaminophen 500 MG Tablet 1000 MG PO ×3 (06:28→21:38)
[2024-07-01] MEDS: Cholecalciferol (Vit D3) 125 MCG CAPSULE (5,000 UNITS) PO (09:33)
[2024-07-01] MEDS: Senna/Docusate Sodium 1 Tablet 2 TABLET PO (09:33)
[2024-07-01] MEDS: Aspirin 81 MG TAB.CHEW PO (09:33)
[2024-07-01] MEDS: Cyanocobalamin 500 MCG Tablet 1000 MCG PO (09:33)
[2024-07-01] MEDS: Finasteride 5 MG Tablet PO (09:33)
[2024-07-01] MEDS: Polyethylene Glycol 3350 17 GM PACKET PO (09:33)
[2024-07-01] MEDS: Citalopram 20 MG Tablet PO (09:33)
[2024-07-01] MEDS: Magnesium Chloride 64 MG Delay Rel.Tablet PO (09:33)
[2024-07-01] MEDS: Tamsulosin HCl 0.4 MG Capsule 0.8 MG PO (09:33)
[2024-07-01] MEDS: Menthol/Lanolin/Calamine/Znox 113 GM Tube 1 APPLIC TOPICAL ×2 (09:33→21:33)
[2024-07-01] MEDS: Sucralfate 1 GM Tablet PO (09:33)
[2024-07-01 09:52] VITALS: BP 96/61; PULSE 82; RESP 16; TEMP 36.7; O2SAT 96
[2024-07-01] MEDS: BACITRACIN 15 GM Tube 1 APPLIC TOPICAL ×2 (11:12→21:36)
--- NOTE | 2024-07-01 11:54 | MDS.RN ---
Information for the MDS was obtained from review of the clinical record, interview of resident, staff, and direct observation of resident?s care.
[2024-07-01] MEDS: Nystatin/Triamcin Cream Tube 1 APPLIC TOPICAL (21:34)
[2024-07-01] MEDS: Atorvastatin Calcium 20 MG Tablet PO (21:36)
[2024-07-01] MEDS: Mirtazapine 30 MG Tablet PO (21:37)
[2024-07-01] MEDS: Gabapentin 300 MG Capsule PO (21:42)
[2024-07-02] MEDS: Ensure Plus High Protein 120 ML LIQUID PO ×4 (06:17→22:08)
[2024-07-02] MEDS: Acetaminophen 500 MG Tablet 1000 MG PO ×3 (06:18→22:09)
[2024-07-02] MEDS: Enoxaparin 40 MG/0.4 ML Syringe SC (06:18)
[2024-07-02] MEDS: Pantoprazole Sodium 40 MG Tablet PO ×2 (06:18→17:02)
[2024-07-02] MEDS: Carbidopa/Levodopa 25/100 Tablet PO ×4 (06:18→18:29)
[2024-07-02 10:43] VITALS: BP 119/74; PULSE 68; RESP 16; TEMP 36.4; O2SAT 96
[2024-07-02] MEDS: Aspirin 81 MG TAB.CHEW PO (10:48)
[2024-07-02] MEDS: Menthol/Lanolin/Calamine/Znox 113 GM Tube 1 APPLIC TOPICAL ×2 (10:48→22:08)
[2024-07-02] MEDS: BACITRACIN 15 GM Tube 1 APPLIC TOPICAL ×2 (10:48→22:06)
[2024-07-02] MEDS: Nystatin/Triamcin Cream Tube 1 APPLIC TOPICAL ×2 (10:49→22:05)
[2024-07-02] MEDS: Sucralfate 1 GM Tablet PO (10:49)
[2024-07-02] MEDS: Tamsulosin HCl 0.4 MG Capsule 0.8 MG PO (10:50)
[2024-07-02] MEDS: Citalopram 20 MG Tablet PO (10:50)
[2024-07-02] MEDS: Lidocaine 5% Patch 1 PATCH TOPICAL (10:51)
[2024-07-02] MEDS: Magnesium Chloride 64 MG Delay Rel.Tablet PO (10:51)
[2024-07-02] MEDS: Finasteride 5 MG Tablet PO (10:52)
[2024-07-02] MEDS: Senna/Docusate Sodium 1 Tablet 2 TABLET PO ×2 (10:52→22:11)
[2024-07-02] MEDS: Cholecalciferol (Vit D3) 125 MCG CAPSULE (5,000 UNITS) PO (10:53)
[2024-07-02] MEDS: Cyanocobalamin 500 MCG Tablet 1000 MCG PO (10:53)
[2024-07-02 20:00] VITALS: PULSE 80; O2SAT 95
[2024-07-02] MEDS: Atorvastatin Calcium 20 MG Tablet PO (22:09)
[2024-07-02] MEDS: Mirtazapine 30 MG Tablet PO (22:11)
[2024-07-02] MEDS: Gabapentin 300 MG Capsule PO (22:14)
[2024-07-03] MEDS: Pantoprazole Sodium 40 MG Tablet PO ×2 (06:14→15:31)
[2024-07-03] MEDS: Ensure Plus High Protein 120 ML LIQUID PO ×3 (06:14→18:00)
[2024-07-03] MEDS: Acetaminophen 500 MG Tablet 1000 MG PO ×3 (06:14→23:12)
[2024-07-03] MEDS: Carbidopa/Levodopa 25/100 Tablet PO ×4 (06:14→18:00)
[2024-07-03] MEDS: Enoxaparin 40 MG/0.4 ML Syringe SC (06:14)
[2024-07-03 06:33] VITALS: PULSE 64; O2SAT 93
[2024-07-03] MEDS: Aspirin 81 MG TAB.CHEW PO (08:59)
[2024-07-03] MEDS: BACITRACIN 15 GM Tube 1 APPLIC TOPICAL ×2 (08:59→23:09)
[2024-07-03] MEDS: Sucralfate 1 GM Tablet PO (09:00)
[2024-07-03] MEDS: Cyanocobalamin 500 MCG Tablet 1000 MCG PO (09:00)
[2024-07-03] MEDS: Finasteride 5 MG Tablet PO (09:00)
[2024-07-03] MEDS: Senna/Docusate Sodium 1 Tablet 2 TABLET PO ×2 (09:00→23:12)
[2024-07-03] MEDS: Citalopram 20 MG Tablet PO (09:00)
[2024-07-03] MEDS: Tamsulosin HCl 0.4 MG Capsule 0.8 MG PO (09:00)
[2024-07-03] MEDS: Magnesium Chloride 64 MG Delay Rel.Tablet PO (09:00)
[2024-07-03] MEDS: Menthol/Lanolin/Calamine/Znox 113 GM Tube 1 APPLIC TOPICAL ×2 (09:01→23:13)
[2024-07-03] MEDS: Cholecalciferol (Vit D3) 125 MCG CAPSULE (5,000 UNITS) PO (09:01)
[2024-07-03] MEDS: Nystatin/Triamcin Cream Tube 1 APPLIC TOPICAL (09:01)
[2024-07-03 09:11] VITALS: BP 108/59; PULSE 73; RESP 18; TEMP 36.6; O2SAT 99
[2024-07-03] MEDS: Gabapentin 300 MG Capsule PO (23:09)
[2024-07-03] MEDS: Mirtazapine 30 MG Tablet PO (23:12)
[2024-07-03] MEDS: Atorvastatin Calcium 20 MG Tablet PO (23:13)
[2024-07-04] MEDS: Enoxaparin 40 MG/0.4 ML Syringe SC (05:53)
[2024-07-04] MEDS: Ensure Plus High Protein 120 ML LIQUID PO ×3 (05:53→16:11)
[2024-07-04] MEDS: Pantoprazole Sodium 40 MG Tablet PO ×2 (05:54→16:10)
[2024-07-04] MEDS: Acetaminophen 500 MG Tablet 1000 MG PO ×3 (05:54→21:34)
[2024-07-04] MEDS: Carbidopa/Levodopa 25/100 Tablet PO ×4 (05:55→18:25)
[2024-07-04] MEDS: Aspirin 81 MG TAB.CHEW PO (09:20)
[2024-07-04] MEDS: Menthol/Lanolin/Calamine/Znox 113 GM Tube 1 APPLIC TOPICAL (09:21)
[2024-07-04] MEDS: Sucralfate 1 GM Tablet PO (09:22)
[2024-07-04] MEDS: Citalopram 20 MG Tablet PO (09:22)
[2024-07-04] MEDS: Tamsulosin HCl 0.4 MG Capsule 0.8 MG PO (09:22)
[2024-07-04] MEDS: Polyethylene Glycol 3350 17 GM PACKET PO (09:23)
[2024-07-04] MEDS: Finasteride 5 MG Tablet PO (09:23)
[2024-07-04] MEDS: Magnesium Chloride 64 MG Delay Rel.Tablet PO (09:23)
[2024-07-04] MEDS: Cyanocobalamin 500 MCG Tablet 1000 MCG PO (09:24)
[2024-07-04] MEDS: Senna/Docusate Sodium 1 Tablet 2 TABLET PO (09:24)
[2024-07-04] MEDS: Cholecalciferol (Vit D3) 125 MCG CAPSULE (5,000 UNITS) PO (09:25)
[2024-07-04] MEDS: traMADol 50 MG Tablet PO (09:32)
[2024-07-04 09:36] VITALS: BP 103/64; PULSE 82; RESP 16; TEMP 36.5; O2SAT 94
[2024-07-04 16:15] VITALS: PULSE 91; RESP 16; O2SAT 96
[2024-07-04] MEDS: Gabapentin 300 MG Capsule PO (21:33)
[2024-07-04] MEDS: Mirtazapine 30 MG Tablet PO (21:34)
[2024-07-04] MEDS: Atorvastatin Calcium 20 MG Tablet PO (21:34)
[2024-07-05 05:50] LABS: Absolute Lymphocyte Count 1.39 X10^3/uL (0.83-4.51); Absolute Neutrophil Count 3.5 X10^3/uL (2.0-7.7); Basophil# 0.07 X10^3/uL; Basophil% 1.2 % (0-1); Eosinophil# 0.08 X10^3/uL; Eosinophils% 1.4 % (0-5); Hematocrit 42.3 % (40-54); Hemoglobin 14.2 g/dL (13.0-16.5); Lymphocyte # 1.39 X10^3/ul (0.83-4.51); Lymphocyte % 24.8 % (19-41); Mean Corp Hgb Conc 33.6 g/dL (32-36); Mean Corpuscular Hgb 32.4 pg (27.0-32.0); Mean Corpuscular Volume 96.6 fL (80-94); Mean Platelet Vol. 8.8 fl (6.2-12.0); Monocyte# 0.46 X10^3/uL; Monocyte% 8.2 % (0-10); NRBC Flagged by Analyzer 0 % (0-5); Neutrophil # 3.48 X10^3/uL (2.7-7.7); Neutrophil % 62.1 % (47-70); Platelet Count 127 K/mm3 (150-450); RBC Distribution Width CV 13.1 % (11.6-14.6); RBC Distribution Width SD 46.7 fl (35.1-43.9); Red Blood Count 4.38 M/mm3 (4.6-6.2); White Blood Count 5.6 K/mm3 (4.4-11.0)
[2024-07-05 06:09] LABS: Anion Gap 8 (5-15); BUN 27 mg/dL (4-19); BUN/Creat Ratio 23.3 RATIO (10-20); Carbon Dioxide 25.4 mmol/L (21.0-32.0); Chloride 105 mmol/L (98-108); Creatinine, Serum 1.16 mg/dL (0.70-1.20); EST Glomerular Filtration Rate 65 (>60); Estimated Creatinine Clearance 61.23 ml/min (50-250); Glucose 129 mg/dL (70-99); Potassium 4.2 mmol/L (3.3-5.1); Sodium Level 138 mmol/L (133-145)
[2024-07-05] MEDS: Enoxaparin 40 MG/0.4 ML Syringe SC (06:20)
[2024-07-05] MEDS: Acetaminophen 500 MG Tablet 1000 MG PO ×3 (06:20→21:36)
[2024-07-05] MEDS: Carbidopa/Levodopa 25/100 Tablet PO ×4 (06:20→18:08)
[2024-07-05] MEDS: Pantoprazole Sodium 40 MG Tablet PO ×2 (06:21→16:28)
[2024-07-05] MEDS: Menthol/Lanolin/Calamine/Znox 113 GM Tube 1 APPLIC TOPICAL ×2 (10:23→21:30)
[2024-07-05] MEDS: Aspirin 81 MG TAB.CHEW PO (10:23)
[2024-07-05] MEDS: Tamsulosin HCl 0.4 MG Capsule 0.8 MG PO (10:24)
[2024-07-05] MEDS: Sucralfate 1 GM Tablet PO (10:24)
[2024-07-05] MEDS: Citalopram 20 MG Tablet PO (10:25)
[2024-07-05] MEDS: Finasteride 5 MG Tablet PO (10:26)
[2024-07-05] MEDS: Magnesium Chloride 64 MG Delay Rel.Tablet PO (10:26)
[2024-07-05] MEDS: Senna/Docusate Sodium 1 Tablet 2 TABLET PO ×2 (10:26→21:35)
[2024-07-05] MEDS: Cyanocobalamin 500 MCG Tablet 1000 MCG PO (10:26)
[2024-07-05] MEDS: Cholecalciferol (Vit D3) 125 MCG CAPSULE (5,000 UNITS) PO (10:27)
[2024-07-05 10:30] VITALS: PULSE 71; RESP 16; O2SAT 96
--- NOTE | 2024-07-05 10:34 | CASEMGMT ---
Social Work SW attempted to call , but phone call not going through. SW phoned dtr to confirm correct number. Dtr confirmed but stated is returning from [place] today and that may be the issue with her phone. Dtr inquired the nature of the phone call. SW explained IDT is inquiring about goals for DC - if can care for pt at home or if alternative plans need to be discussed and coordinated. Dtr reports the plan is to have pt return home, but inquired about any changes in LOF. SW provided updates from therapy notes on 07/02 and 07/03. Pt remains a maxA for ADLs, but ambulating far distances and Jose Guadalupe for transfers. Dtr appreciative of update and feels can care for pt at that level. Dtr will update and have her contact this worker to finalize. MERNA appreciative. Will continue to follow. Ninfa Lopez LEARNING ANALYST PETROLEUM REFINERY WORKER
[2024-07-05 10:40] VITALS: BP 112/71; PULSE 74; RESP 16; TEMP 36.4; O2SAT 96
[2024-07-05] MEDS: Ensure Plus High Protein 120 ML LIQUID PO ×3 (11:37→21:29)
[2024-07-05] MEDS: Gabapentin 300 MG Capsule PO (21:29)
[2024-07-05] MEDS: Atorvastatin Calcium 20 MG Tablet PO (21:31)
[2024-07-05] MEDS: Mirtazapine 30 MG Tablet PO (21:32)
[2024-07-06] MEDS: Ensure Plus High Protein 120 ML LIQUID PO ×4 (06:16→21:16)
[2024-07-06] MEDS: Enoxaparin 40 MG/0.4 ML Syringe SC (06:16)
[2024-07-06] MEDS: Acetaminophen 500 MG Tablet 1000 MG PO ×3 (06:17→21:17)
[2024-07-06] MEDS: Pantoprazole Sodium 40 MG Tablet PO ×2 (06:17→15:10)
[2024-07-06] MEDS: Carbidopa/Levodopa 25/100 Tablet PO ×4 (06:17→18:26)
[2024-07-06 09:42] VITALS: BP 110/56; PULSE 70; RESP 17; TEMP 36.6; O2SAT 95
[2024-07-06] MEDS: Aspirin 81 MG TAB.CHEW PO (09:44)
[2024-07-06] MEDS: Sucralfate 1 GM Tablet PO (09:45)
[2024-07-06] MEDS: Menthol/Lanolin/Calamine/Znox 113 GM Tube 1 APPLIC TOPICAL ×2 (09:45→20:59)
[2024-07-06] MEDS: Tamsulosin HCl 0.4 MG Capsule 0.8 MG PO (09:45)
[2024-07-06] MEDS: Magnesium Chloride 64 MG Delay Rel.Tablet PO (09:45)
[2024-07-06] MEDS: Citalopram 20 MG Tablet PO (09:45)
[2024-07-06] MEDS: Cholecalciferol (Vit D3) 125 MCG CAPSULE (5,000 UNITS) PO (09:46)
[2024-07-06] MEDS: Finasteride 5 MG Tablet PO (09:46)
[2024-07-06] MEDS: Senna/Docusate Sodium 1 Tablet 2 TABLET PO ×2 (09:46→21:18)
[2024-07-06] MEDS: Cyanocobalamin 500 MCG Tablet 1000 MCG PO (09:46)
--- NOTE | 2024-07-06 15:00 | CASEMGMT ---
Social Work 07/06/24 at approximately 11:00: SW presented to pts room where was present. SW explained nature of phone call with dtr yesterday. Explained IDT is meeting this afternoon and a DC plan needs to be discussed. Pt is is needing maxA with toileting, showering, LE tasks, though is ambulating well. transfers vary from CGA-modA. SW noted has active social life and inquired if she can provide care for pt at home. unable to provide clear answer on plans. SW offered for to attend OT training to see pt's abilities. agreed. SW to speak with IDT and follow up with . -- 07/06/24 at approximately 1400: SW returned to pt's room and spoke with pt and . Updated that IDT is recommending 24/7 care, even while pt is sitting as pt leans heavily to the right and is fall risk. Pt is CGA when ambulating. Offered OT session 07/07 with HAMMER OPERATOR. agreed to 0900. requested caregiver resources again and Parkinson's classes. SW provided both resources. SW requested contact this worker after therapy session to notify of DC plan. [facility] NRD is 07/08. expressed understanding. SW will continue to follow. Ninfa Lopez INSPECTOR AND CLIPPER VINER OPERATOR
[2024-07-06 20:00] VITALS: PULSE 86; O2SAT 91
[2024-07-06] MEDS: Gabapentin 300 MG Capsule PO (21:16)
[2024-07-06] MEDS: Mirtazapine 30 MG Tablet PO (21:19)
[2024-07-06] MEDS: Atorvastatin Calcium 20 MG Tablet PO (21:21)
[2024-07-07] MEDS: Ensure Plus High Protein 120 ML LIQUID PO ×3 (06:08→18:07)
[2024-07-07] MEDS: Enoxaparin 40 MG/0.4 ML Syringe SC (06:08)
[2024-07-07] MEDS: Carbidopa/Levodopa 25/100 Tablet PO ×4 (06:09→18:07)
[2024-07-07] MEDS: Pantoprazole Sodium 40 MG Tablet PO ×2 (06:09→15:34)
[2024-07-07] MEDS: Acetaminophen 500 MG Tablet 1000 MG PO ×3 (06:09→21:58)
[2024-07-07 06:42] VITALS: PULSE 66; O2SAT 94
[2024-07-07] MEDS: Finasteride 5 MG Tablet PO (08:48)
[2024-07-07] MEDS: Cyanocobalamin 500 MCG Tablet 1000 MCG PO (08:48)
[2024-07-07] MEDS: Sucralfate 1 GM Tablet PO (08:48)
[2024-07-07] MEDS: Senna/Docusate Sodium 1 Tablet 2 TABLET PO ×2 (08:48→21:57)
[2024-07-07] MEDS: Cholecalciferol (Vit D3) 125 MCG CAPSULE (5,000 UNITS) PO (08:48)
[2024-07-07] MEDS: Aspirin 81 MG TAB.CHEW PO (08:48)
[2024-07-07] MEDS: Tamsulosin HCl 0.4 MG Capsule 0.8 MG PO (08:48)
[2024-07-07] MEDS: Citalopram 20 MG Tablet PO (08:48)
[2024-07-07] MEDS: Magnesium Chloride 64 MG Delay Rel.Tablet PO (08:48)
[2024-07-07] MEDS: Menthol/Lanolin/Calamine/Znox 113 GM Tube 1 APPLIC TOPICAL ×2 (08:49→21:59)
[2024-07-07 09:35] VITALS: BP 100/59; PULSE 77; RESP 17; TEMP 36.9; O2SAT 97
[2024-07-07 11:13] VITALS: BMI 25.4
[2024-07-07] MEDS: Calcium Carbonate 500 MG Tablet PO (12:30)
[2024-07-07] MEDS: Atorvastatin Calcium 20 MG Tablet PO (21:56)
[2024-07-07] MEDS: Mirtazapine 30 MG Tablet PO (21:57)
--- NOTE | 2024-07-07 22:02 | NURSING ---
[employer] is not allowing to chart Gabapentin administration, IT called and is currently working on a solution; Gabapentin 300mg admin per order at this time (07/07/24 : 2200). Administration verified by Francesco Guido RN.
[2024-07-07] MEDS: Gabapentin 300 MG Capsule PO (22:54)
[2024-07-08] MEDS: Enoxaparin 40 MG/0.4 ML Syringe SC (06:07)
[2024-07-08] MEDS: Pantoprazole Sodium 40 MG Tablet PO ×2 (06:07→15:49)
[2024-07-08] MEDS: Acetaminophen 500 MG Tablet 1000 MG PO ×3 (06:07→22:07)
[2024-07-08] MEDS: Carbidopa/Levodopa 25/100 Tablet PO ×4 (06:08→18:11)
[2024-07-08] MEDS: Menthol/Lanolin/Calamine/Znox 113 GM Tube 1 APPLIC TOPICAL ×2 (09:31→22:08)
[2024-07-08] MEDS: Sucralfate 1 GM Tablet PO (09:32)
[2024-07-08] MEDS: Tamsulosin HCl 0.4 MG Capsule 0.8 MG PO (09:33)
[2024-07-08] MEDS: Citalopram 20 MG Tablet PO (09:33)
[2024-07-08] MEDS: Finasteride 5 MG Tablet PO (09:34)
[2024-07-08] MEDS: Magnesium Chloride 64 MG Delay Rel.Tablet PO (09:34)
[2024-07-08] MEDS: Senna/Docusate Sodium 1 Tablet 2 TABLET PO ×2 (09:34→22:07)
[2024-07-08] MEDS: Polyethylene Glycol 3350 17 GM PACKET PO (09:34)
[2024-07-08] MEDS: Cholecalciferol (Vit D3) 125 MCG CAPSULE (5,000 UNITS) PO (09:35)
[2024-07-08] MEDS: Cyanocobalamin 500 MCG Tablet 1000 MCG PO (09:35)
[2024-07-08] MEDS: Aspirin 81 MG TAB.CHEW PO (09:43)
[2024-07-08 09:57] VITALS: BP 106/70; PULSE 72; RESP 18; TEMP 36.6; O2SAT 93
[2024-07-08] MEDS: Ensure Plus High Protein 120 ML LIQUID PO ×3 (11:11→20:11)
[2024-07-08] MEDS: traMADol 50 MG Tablet PO (18:23)
[2024-07-08 19:56] VITALS: PULSE 81; RESP 17
[2024-07-08] MEDS: Mirtazapine 30 MG Tablet PO (22:07)
[2024-07-08] MEDS: Atorvastatin Calcium 20 MG Tablet PO (22:07)
[2024-07-08] MEDS: Gabapentin 300 MG Capsule PO (22:07)
[2024-07-09] MEDS: Carbidopa/Levodopa 25/100 Tablet PO ×4 (06:05→18:09)
[2024-07-09] MEDS: Enoxaparin 40 MG/0.4 ML Syringe SC (06:05)
[2024-07-09] MEDS: Acetaminophen 500 MG Tablet 1000 MG PO ×3 (06:06→21:20)
[2024-07-09] MEDS: Pantoprazole Sodium 40 MG Tablet PO ×2 (06:06→17:09)
[2024-07-09] MEDS: Aspirin 81 MG TAB.CHEW PO (08:37)
[2024-07-09] MEDS: Menthol/Lanolin/Calamine/Znox 113 GM Tube 1 APPLIC TOPICAL ×2 (08:38→21:19)
[2024-07-09] MEDS: Tamsulosin HCl 0.4 MG Capsule 0.8 MG PO (08:39)
[2024-07-09] MEDS: Citalopram 20 MG Tablet PO (08:39)
[2024-07-09] MEDS: Sucralfate 1 GM Tablet PO (08:39)
[2024-07-09] MEDS: Magnesium Chloride 64 MG Delay Rel.Tablet PO (08:40)
[2024-07-09] MEDS: Polyethylene Glycol 3350 17 GM PACKET PO (08:40)
[2024-07-09] MEDS: Finasteride 5 MG Tablet PO (08:41)
[2024-07-09] MEDS: Cholecalciferol (Vit D3) 125 MCG CAPSULE (5,000 UNITS) PO (08:42)
[2024-07-09] MEDS: Cyanocobalamin 500 MCG Tablet 1000 MCG PO (08:42)
[2024-07-09 09:55] VITALS: BP 93/62; PULSE 76; RESP 18; TEMP 36.6; O2SAT 94
[2024-07-09] MEDS: Ensure Plus High Protein 120 ML LIQUID PO ×2 (11:05→17:09)
--- NOTE | 2024-07-09 11:52 | CASEMGMT ---
Addendum entered by Ninfa Lopez 07/09/24 13:52: phoned this worker with HHC preferences : [facility], [facility], [facility] Original Note: Social Work SW spoke with pt and at bedside. Followed up on therapy training and if was comfortable taking pt home. confirmed she will take pt home and figure it out from there. SW reiterated therapy is recommending 24/7 care, and encouraged to contact nonskilled HHC agencies to allow to continue with social activities. agreed. SW offered to coordinate skilled HHC. agreed and has not used an agency prior. SW provided list of skilled HHC agencies within geographical area, INN with insurance, that include quality and resource data via [employer] guide. to review and notify this worker of preference. Pt denied DME needs. No outcome from insurance update yet. SW will continue to follow for DC planning. Ninfa JARAMILLO CASH PROCESSOR
[2024-07-09] MEDS: Mirtazapine 30 MG Tablet PO (21:19)
[2024-07-09] MEDS: Gabapentin 300 MG Capsule PO (21:20)
[2024-07-09] MEDS: Atorvastatin Calcium 20 MG Tablet PO (21:20)
[2024-07-09] MEDS: Senna/Docusate Sodium 1 Tablet 2 TABLET PO (21:20)
[2024-07-10] MEDS: Pantoprazole Sodium 40 MG Tablet PO ×2 (06:28→15:32)
[2024-07-10] MEDS: Carbidopa/Levodopa 25/100 Tablet PO ×4 (06:28→18:09)
[2024-07-10] MEDS: Enoxaparin 40 MG/0.4 ML Syringe SC (06:28)
[2024-07-10] MEDS: Acetaminophen 500 MG Tablet 1000 MG PO ×3 (06:28→21:24)
[2024-07-10] MEDS: Cholecalciferol (Vit D3) 125 MCG CAPSULE (5,000 UNITS) PO (09:18)
[2024-07-10] MEDS: Aspirin 81 MG TAB.CHEW PO (09:18)
[2024-07-10] MEDS: Citalopram 20 MG Tablet PO (09:18)
[2024-07-10] MEDS: Tamsulosin HCl 0.4 MG Capsule 0.8 MG PO (09:19)
[2024-07-10] MEDS: Magnesium Chloride 64 MG Delay Rel.Tablet PO (09:19)
[2024-07-10] MEDS: Cyanocobalamin 500 MCG Tablet 1000 MCG PO (09:19)
[2024-07-10] MEDS: Sucralfate 1 GM Tablet PO (09:19)
[2024-07-10] MEDS: Menthol/Lanolin/Calamine/Znox 113 GM Tube 1 APPLIC TOPICAL ×2 (09:19→21:19)
[2024-07-10] MEDS: Polyethylene Glycol 3350 17 GM PACKET PO (09:19)
[2024-07-10] MEDS: Senna/Docusate Sodium 1 Tablet 2 TABLET PO ×2 (09:19→21:24)
[2024-07-10] MEDS: Finasteride 5 MG Tablet PO (09:19)
[2024-07-10 09:35] VITALS: BP 102/64; PULSE 75; RESP 17; TEMP 36.8; O2SAT 94
[2024-07-10] MEDS: Ensure Plus High Protein 120 ML LIQUID PO ×3 (11:35→21:21)
[2024-07-10] MEDS: Atorvastatin Calcium 20 MG Tablet PO (21:21)
[2024-07-10] MEDS: Mirtazapine 30 MG Tablet PO (21:22)
[2024-07-10] MEDS: Gabapentin 300 MG Capsule PO (21:27)
[2024-07-11] MEDS: Enoxaparin 40 MG/0.4 ML Syringe SC (06:11)
[2024-07-11] MEDS: Pantoprazole Sodium 40 MG Tablet PO ×2 (06:11→15:27)
[2024-07-11] MEDS: Carbidopa/Levodopa 25/100 Tablet PO ×4 (06:11→18:09)
[2024-07-11] MEDS: Ensure Plus High Protein 120 ML LIQUID PO ×3 (06:11→18:09)
[2024-07-11] MEDS: Acetaminophen 500 MG Tablet 1000 MG PO ×3 (06:11→22:06)
[2024-07-11] MEDS: Finasteride 5 MG Tablet PO (08:58)
[2024-07-11] MEDS: Aspirin 81 MG TAB.CHEW PO (08:58)
[2024-07-11] MEDS: Polyethylene Glycol 3350 17 GM PACKET PO (08:58)
[2024-07-11] MEDS: Tamsulosin HCl 0.4 MG Capsule 0.8 MG PO (08:58)
[2024-07-11] MEDS: Cholecalciferol (Vit D3) 125 MCG CAPSULE (5,000 UNITS) PO (08:58)
[2024-07-11] MEDS: Cyanocobalamin 500 MCG Tablet 1000 MCG PO (08:58)
[2024-07-11] MEDS: Sucralfate 1 GM Tablet PO (08:58)
[2024-07-11] MEDS: Citalopram 20 MG Tablet PO (08:59)
[2024-07-11] MEDS: Senna/Docusate Sodium 1 Tablet 2 TABLET PO ×2 (08:59→22:06)
[2024-07-11] MEDS: Magnesium Chloride 64 MG Delay Rel.Tablet PO (08:59)
[2024-07-11] MEDS: Menthol/Lanolin/Calamine/Znox 113 GM Tube 1 APPLIC TOPICAL ×2 (09:03→22:08)
[2024-07-11 09:28] VITALS: BP 102/60; PULSE 68; RESP 17; TEMP 36.6; O2SAT 95
[2024-07-11 20:00] VITALS: PULSE 82; O2SAT 93
[2024-07-11] MEDS: Mirtazapine 30 MG Tablet PO (22:07)
[2024-07-11] MEDS: Atorvastatin Calcium 20 MG Tablet PO (22:08)
[2024-07-11] MEDS: Gabapentin 300 MG Capsule PO (22:20)
[2024-07-12 04:51] VITALS: PULSE 68; O2SAT 92
[2024-07-12] MEDS: Enoxaparin 40 MG/0.4 ML Syringe SC (06:04)
[2024-07-12] MEDS: Carbidopa/Levodopa 25/100 Tablet PO ×4 (06:04→18:23)
[2024-07-12] MEDS: Pantoprazole Sodium 40 MG Tablet PO ×2 (06:05→15:26)
[2024-07-12] MEDS: Acetaminophen 500 MG Tablet 1000 MG PO ×3 (06:05→22:01)
[2024-07-12 08:34] LABS: Absolute Lymphocyte Count 1.47 X10^3/uL (0.83-4.51); Absolute Neutrophil Count 2.7 X10^3/uL (2.0-7.7); Basophil# 0.05 X10^3/uL; Eosinophil# 0.14 X10^3/uL; Eosinophils% 2.9 % (0-5); Hematocrit 43.7 % (40-54); Hemoglobin 14.9 g/dL (13.0-16.5); Lymphocyte # 1.47 X10^3/ul (0.83-4.51); Lymphocyte % 30.5 % (19-41); Mean Corp Hgb Conc 34.1 g/dL (32-36); Mean Corpuscular Hgb 32.7 pg (27.0-32.0); Mean Platelet Vol. 8.8 fl (6.2-12.0); Monocyte# 0.43 X10^3/uL; Monocyte% 8.9 % (0-10); NRBC Flagged by Analyzer 0 % (0-5); Neutrophil # 2.66 X10^3/uL (2.7-7.7); Neutrophil % 55.2 % (47-70); Platelet Count 151 K/mm3 (150-450); RBC Distribution Width CV 13.5 % (11.6-14.6); RBC Distribution Width SD 47.7 fl (35.1-43.9); Red Blood Count 4.55 M/mm3 (4.6-6.2); White Blood Count 4.8 K/mm3 (4.4-11.0)
[2024-07-12 09:19] LABS: Anion Gap 9 (5-15); BUN 26 mg/dL (4-19); BUN/Creat Ratio 21.7 RATIO (10-20); Calcium,Total 9.3 mg/dL (7.6-11.0); Carbon Dioxide 24.7 mmol/L (21.0-32.0); Chloride 105 mmol/L (98-108); Creatinine, Serum 1.18 mg/dL (0.70-1.20); EST Glomerular Filtration Rate 64 (>60); Estimated Creatinine Clearance 60.19 ml/min (50-250); Glucose 119 mg/dL (70-99); Potassium 4.4 mmol/L (3.3-5.1); Sodium Level 139 mmol/L (133-145)
[2024-07-12] MEDS: Magnesium Chloride 64 MG Delay Rel.Tablet PO (10:10)
[2024-07-12] MEDS: Cyanocobalamin 500 MCG Tablet 1000 MCG PO (10:10)
[2024-07-12] MEDS: Sucralfate 1 GM Tablet PO (10:10)
[2024-07-12] MEDS: Cholecalciferol (Vit D3) 125 MCG CAPSULE (5,000 UNITS) PO (10:10)
[2024-07-12] MEDS: Aspirin 81 MG TAB.CHEW PO (10:10)
[2024-07-12] MEDS: Citalopram 20 MG Tablet PO (10:10)
[2024-07-12] MEDS: Polyethylene Glycol 3350 17 GM PACKET PO (10:11)
[2024-07-12] MEDS: Finasteride 5 MG Tablet PO (10:11)
[2024-07-12] MEDS: Senna/Docusate Sodium 1 Tablet 2 TABLET PO ×2 (10:11→22:01)
[2024-07-12] MEDS: Tamsulosin HCl 0.4 MG Capsule 0.8 MG PO (10:12)
[2024-07-12] MEDS: Menthol/Lanolin/Calamine/Znox 113 GM Tube 1 APPLIC TOPICAL ×2 (10:27→22:04)
[2024-07-12] MEDS: traMADol 50 MG Tablet PO (11:54)
[2024-07-12] MEDS: Ensure Plus High Protein 120 ML LIQUID PO ×2 (11:54→15:26)
--- NOTE | 2024-07-12 13:09 | CASEMGMT ---
Social Work Insurance issued LCD 07/14, DC 07/15 SW met with patient and at bedside. SW provided NOMNC to pt and educated to appeal rights. Pt verbalized understanding and denied appeal. Pt is agreeable to DC. expressed no questions or concerns. SW to make referral to [facility]. SW educated HH agency will contact pt for SOC date date, but typically 2-3 days after DC, pending PCP signing orders. /pt expressed understanding. to transport and denied DME needs. - MERNA phoned referral to [facility] for PT/OT/ST/SN/SW - accepted. SOC 07/16. Plan: DC home with 07/15, [facility] PT/OT/ST/SN/MERNA Lopez MSW RESISTOR TESTER
[2024-07-12 14:53] VITALS: BP 128/74; PULSE 70; RESP 15; TEMP 36.9; O2SAT 95
--- NOTE | 2024-07-12 18:38 | DS.PCM_ITS ---
Providers Date of Admission: 06/19/24 Primary Care Physician: Dr. Usman Miller, DO Consultations 06/21/24 07:48 Consult: Pain Management Routine Consulting Provider: Jorge Ma Reason for Consult: Left lumbar radiculopathy. EMERGENT Consult: No MD Notified: Yes Date Notified: 06/21/24 Time Notified: 09:29 Method of Notification: Answering Service Comments:: Spoke with Aimee Reason For Visit: LUMBAR RADICUUPATHY Diagnosis Discharge Diagnosis (1) Lumbar radiculopathy, acute: Status: Acute Code(s): M54.16 - Radiculopathy, lumbar region Plan 78 year old male with below past medical history hospitalized for intractable low back pain 2/2 lumbar spinal stenosis, lumbar radiculopathy, admitted to TCU with debility, here for rehabilitation, strengthening, prior to discharge home with . * Debility - PT/OT. * Pain -Tylenol 1000mg q8, Tramadol 50mg q6 prn pain (1-5), Oxycodone 5mg q4 prn pain (6-10), Lidoderm patch 1 patch td daily. * Bowel - Miralax 17gm daily, senna/colace 2 tablets bid, Magnesium citrate 300mL daily prn. * Adult immunization - Administer pneumonia vaccine, covid vaccine, flu vaccine as appropriate. * DVT prophylaxis - Hold Lovenox 40mg sc daily for procedure. * Lumbar spinal stenosis - Prednisone 40mg taper, pain no better since hospital, consult Dr. Ma for lumbar REJI. * Coronary artery disease - Aspirin 81mg daily, NTG 0.4mg sl q5m prn. * Hyperlipidemia - Atorvastatin 20mg qhs. * Vitamin D deficiency - D 125mcg daily. * Depression - Citalopram 20mg daily, stable chronic care home use, GDR not recommended. 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 * Vitamin B12 deficiency - B12 1000mcg daily. * Parkinson Disease - Sinemet 25/100mg 2 tablets qid, Entacapone 200mg qid. * BPH - Finasteride 5mg daily, Tamsulosin 0.8mg daily. * Neuropathic pain - Gabapentin 300mg qhs. * Hypomagnesemia - Magnesium chloride 6mg daily. * Appetite loss/insomnia - Mirtazapine 30mg qhs. * Tinea Corporis - Lotrisone topical bid. * GERD - Pantoprazole 40mg bid, Sucralfate 1gm bid. Medications at Discharge Home Medications Magnesium Chloride 64 mg PO DAILY supplement 06/05/16 aspirin 81 mg chewable tablet 81 mg PO DAILY@0800 heart 06/05/16 carbidopa 25 mg-levodopa 100 mg tablet 2 tab PO 4X/DAY parkinsons 06/05/16 clonazepam 0.5 mg tablet 0.5 mg PO QHS sleep 06/05/16 nitroglycerin 0.4 mg sublingual tablet 0.4 mg sublingual Q5M PRN Chest Pain 06/05/16 simvastatin 40 mg tablet 40 mg PO QHS cholesterol 06/05/16 tamsulosin 0.4 mg capsule (Flomax) 0.8 mg PO DAILY urination 06/05/16 cholecalciferol (vitamin D3) 125 mcg (5,000 unit) capsule 125 mcg PO DAILY supplement 06/19/24 citalopram 20 mg tablet (Celexa) 20 mg PO DAILY mood 06/19/24 cyanocobalamin (vitamin B-12) 1,000 mcg tablet 1,000 mcg PO DAILY supplement 06/19/24 entacapone 200 mg tablet 200 mg PO 4X/DAY parkinsons 06/19/24 finasteride 5 mg tablet 5 mg PO DAILY prostate 06/19/24 mirtazapine 30 mg tablet 30 mg PO QHS RLS 06/19/24 pantoprazole 40 mg tablet,delayed release 40 mg PO BID gerd 06/19/24 polyethylene glycol 3350 17 gram oral powder packet (Miralax) 17 g PO DAILY constipation 06/19/24 sucralfate 1 gram tablet (Carafate) 1 mg PO DAILY stomach 06/19/24 acetaminophen 500 mg tablet 1,000 mg (2 x 500 mg) PO Q8 #0 tabs 07/12/24 calcium carbonate 500 mg (2.5 x 200 mg calcium (500 mg)) PO Q4H PRN PRN Indigestion #0 tabs 07/12/24 gabapentin 300 mg capsule 300 mg PO QHS 30 days #30 caps 07/12/24 tramadol 50 mg tablet 50 mg PO Q6H PRN PRN Pain Score 1-5 Or Pre Pt/Ot 7 days #28 tabs 07/12/24 Hospital Course Operations None Procedures - (Epidural steroid injection. ) Summary of Care Provided Minutes Spent on Discharge: 35 Hospital Course: 78 year old male with below past medical history hospitalized for intractable low back pain 2/2 lumbar spinal stenosis, lumbar radiculopathy, admitted to TCU with debility, here for rehabilitation, strengthening, prior to discharge home with . 06/22/2024 Dr. Ma Performed: Surgery/Procedure Performed: Left L3-L4 TFESI Discharge home with 07/15/2024, [facility] PT/OT/ST/SN/SW. Physical Exam Const alert General Appearance: cooperative HEENT normocephalic Eyes PERRL and EOMs intact bilaterally Neck supple, no JVD and no carotid bruits Resp normal respiratory effort, normal air movement and clear to auscultation bilaterally Cardio regular rate and regular rhythm GI normal to inspection, nondistended, normoactive bowel sounds, non-tender and non-distended Extremity normal capillary refill General Extremity: Negative for edema Skin no rashes or lesions noted General Skin Exam: no breakdown Psych affect normal Appearance: appropriate Weight / BMI Weight Weight: 87.634 kg Body Mass Index (BMI) 25.4 ABG / Lab / Microbiology Data 07/12/24 08:14 07/12/24 08:14 Laboratory: Laboratory Results - last 24 hr 07/12/24 08:14: WBC 4.8, RBC 4.55 L, Hgb 14.9, Hct 43.7, MCV 96.0 H, MCH 32.7 H, MCHC 34.1, RDW Std Deviation 47.7 H, RDW Coeff of Michael 13.5, Plt Count 151, MPV 8.8, Immature Gran % (Auto) 1.500 H, Neut % (Auto) 55.2, Lymph % (Auto) 30.5, Bath % (Auto) 8.9, Eos % (Auto) 2.9, Baso % (Auto) 1.0, Absolute Neuts (auto) 2.7, Absolute Lymphs (auto) 1.47, Nucleated RBC % 0, Sodium 139, Potassium 4.4, Chloride 105, Carbon Dioxide 24.7, Anion Gap 9, BUN 26 H, Creatinine 1.18, Estim Creat Clear Calc 60.19, Est GFR (MDRD) Non-Af 64, BUN/Creatinine Ratio 21.7 H, G lucose 119 H, Calcium 9.3 D/C Instructions Discharge Diet: No restrictions Discharge Activity: Return to Normal Activity, May Shower and Use Walker Weight Bearing Status: Weight bearing as tolerated Call your doctor if you observe: Fever of 101 or Higher, Inability to urinate, Inability to have a bowel movement, Shortness of breath, Dizziness, Fainting spells, Swelling in the ankles, Chest pain and Uncontrolled pain DC O2, CPAP, BIPAP Needs Home O2 Discharge instructions: No Additional Instructions: Discharge home with 07/15/2024, [facility] PT/OT/ST/SN/SW. Meaningful Use Info Meaningful Use Meaningful Use Diagnoses (Choose all that apply): None applicable Ischemic Stroke Statin Dosing Therapy Reference: STATIN DOSE THERAPY REFERENCE: * Patients > 75 years receive moderate or high dose statin therapy. * Patients 75 years or YOUNGER should receive HIGH intensity statin dose unless contraindicated. You will be required to document reason for non-treatment if statin daily dose does not meet guidelines. HIGH DOSE STATIN THERAPY DAILY Atorvastatin > than or = to 40 mg Rosuvastatin > than or = to 20 mg Amlodipine + Atorvastatin > than or = to 2.5/40 mg Ezetimibe + Simvastatin 10/80 mg Simvastatin 80mg Discharge Plan Admission Admit Date/Time: 06/19/24 15:57 Primary Reason for Your Visit: Debility. Attending Provider: Isidro Titus Chi Primary Care Provider: Usman Miller Consulting Providers: Jorge Ma Instructions Additional Instructions / Restrictions: Discharge home with 07/15/2024, [facility] PT/OT/ST/SN/SW. Discharge Orders/Prescriptions Prescriptions: New tramadol 50 mg Tablet 50 mg PO Q6H PRN PRN (Reason: Pain Score 1-5 Or Pre Pt/Ot) 7 Days Qty: 28 0RF acetaminophen 500 mg Tablet 1,000 mg PO Q8 Qty: 0 0RF calcium carbonate 200 mg calcium (500 mg) Tablet,Chewable 500 mg PO Q4H PRN PRN (Reason: Indigestion) Qty: 0 0RF gabapentin 300 mg Capsule 300 mg PO QHS 30 Days Qty: 30 0RF Continued clonazepam 0.5 MG tablet 0.5 mg PO QHS Patient Comments: SLEEP Rx Instructions: take 1-2 tablets by mouth at bedtime as needed for sleep. Take additional tablet if needed for situational anxiety. Max dose 2 tablets per day. simvastatin 40 MG tablet 40 mg PO QHS Patient Comments: CHOLESTEROL LOWERING tamsulosin [Flomax] 0.4 MG capsule 0.8 mg PO DAILY Patient Comments: PROSTATE nitroglycerin 0.4 MG tablet 0.4 mg sublingual Q5M PRN (Reason: Chest Pain) Patient Comments: CHEST PAIN aspirin 81 MG tablet,chewable 81 mg PO DAILY@0800 Patient Comments: HEART HEALTH carbidopa-levodopa 1 TABLET tablet 2 tab PO 4X/DAY Patient Comments: [facility]IN[facility]S Rx Instructions: take at 7am, 11am, 3pm, 7pm Magnesium Chloride 64 MG tablet 64 mg PO DAILY Patient Comments: SUPPLEMENT cholecalciferol (vitamin D3) 125 mcg (5,000 unit) capsule 125 mcg PO DAILY citalopram [Celexa] 20 mg tablet 20 mg PO DAILY cyanocobalamin (vitamin B-12) 1,000 mcg tablet 1,000 mcg PO DAILY entacapone 200 mg tablet 200 mg PO 4X/DAY Rx Instructions: administer at the same time as l-dopa/carbidopa dose 7am, 11am, 3pm, 7pm finasteride 5 mg tablet 5 mg PO DAILY polyethylene glycol 3350 [Miralax] 17 gram powder in packet 17 g PO DAILY mirtazapine 30 mg tablet 30 mg PO QHS pantoprazole 40 mg tablet,delayed release (DR/EC) 40 mg PO BID Rx Instructions: before meals at 6a and 4p sucralfate [Carafate] 1 gram tablet 1 mg PO DAILY Discontinued carvedilol [Coreg] 6.25 MG tablet 6.25 mg PO DAILY Patient Comments: BLOOD PRESSURE venlafaxine 150 MG capsule 150 mg PO DAILY lorazepam 0.5 MG tablet 0.5 mg PO BID PRN PRN (Reason: Anxiety) Patient Comments: ANXIETY lisinopril [Zestril] 5 MG tablet 2.5 mg PO DAILY Patient Comments: BLOOD PRESSURE ciprofloxacin HCl 500 MG tablet 500 mg PO BID Qty: 10 0RF hydrocodone-acetaminophen 1 TABLET tablet 1 - 2 tab PO Q4H PRN PRN (Reason: Pain) Qty: 10 0RF gabapentin 300 mg capsule 300 mg PO QHS lidocaine 4 % adhesive patch,medicated 1 patch topical DAILY oxycodone 5 mg tablet 5 mg PO Q6H PRN (Reason: pain (scale score 6-10)) nystatin-triamcinolone Cream topical BID Rx Instructions: rash to eyebrows prednisone 10 mg tablet 10 mg PO DAILY Rx Instructions: take 4 tabs daily for 3 days, then 2 tabs daily for 3 days, then 1 tab daily for 3 days with food Referrals / Follow Up: Usman Miller DO [Primary Care Provider] - 07/20/24 10:20 am Disposition Disposition (needs filled in before D/C Order can be placed): Home Health Service
[2024-07-12] MEDS: Gabapentin 300 MG Capsule PO (21:59)
[2024-07-12] MEDS: Atorvastatin Calcium 20 MG Tablet PO (21:59)
[2024-07-12] MEDS: Mirtazapine 30 MG Tablet PO (22:01)
[2024-07-13] MEDS: Pantoprazole Sodium 40 MG Tablet PO ×2 (06:22→16:31)
[2024-07-13] MEDS: Carbidopa/Levodopa 25/100 Tablet PO ×4 (06:22→18:16)
[2024-07-13] MEDS: Acetaminophen 500 MG Tablet 1000 MG PO ×3 (06:23→21:46)
[2024-07-13] MEDS: Enoxaparin 40 MG/0.4 ML Syringe SC (06:23)
[2024-07-13] MEDS: Ensure Plus High Protein 120 ML LIQUID PO ×3 (06:23→16:31)
[2024-07-13] MEDS: Aspirin 81 MG TAB.CHEW PO (09:44)
[2024-07-13] MEDS: Sucralfate 1 GM Tablet PO (09:44)
[2024-07-13] MEDS: Citalopram 20 MG Tablet PO (09:44)
[2024-07-13] MEDS: Tamsulosin HCl 0.4 MG Capsule 0.8 MG PO (09:44)
[2024-07-13] MEDS: Polyethylene Glycol 3350 17 GM PACKET PO (09:45)
[2024-07-13] MEDS: Senna/Docusate Sodium 1 Tablet 2 TABLET PO ×2 (09:45→21:46)
[2024-07-13] MEDS: Finasteride 5 MG Tablet PO (09:45)
[2024-07-13] MEDS: Cholecalciferol (Vit D3) 125 MCG CAPSULE (5,000 UNITS) PO (09:45)
[2024-07-13] MEDS: Magnesium Chloride 64 MG Delay Rel.Tablet PO (09:45)
[2024-07-13] MEDS: Cyanocobalamin 500 MCG Tablet 1000 MCG PO (09:45)
[2024-07-13] MEDS: Menthol/Lanolin/Calamine/Znox 113 GM Tube 1 APPLIC TOPICAL ×2 (09:53→21:49)
[2024-07-13 10:00] VITALS: PULSE 80; RESP 18; O2SAT 96
[2024-07-13 10:21] VITALS: BMI 25.7
[2024-07-13 15:43] VITALS: BP 96/61; PULSE 73; RESP 16; TEMP 36.4; O2SAT 94
[2024-07-13] MEDS: Mirtazapine 30 MG Tablet PO (21:46)
[2024-07-13] MEDS: Gabapentin 300 MG Capsule PO (21:46)
[2024-07-13] MEDS: Atorvastatin Calcium 20 MG Tablet PO (21:46)
[2024-07-14] MEDS: Acetaminophen 500 MG Tablet 1000 MG PO ×3 (06:09→21:57)
[2024-07-14] MEDS: Ensure Plus High Protein 120 ML LIQUID PO ×3 (06:09→17:07)
[2024-07-14] MEDS: Enoxaparin 40 MG/0.4 ML Syringe SC (06:09)
[2024-07-14] MEDS: Carbidopa/Levodopa 25/100 Tablet PO ×4 (06:10→18:14)
[2024-07-14] MEDS: Pantoprazole Sodium 40 MG Tablet PO ×2 (06:10→16:20)
[2024-07-14] MEDS: Menthol/Lanolin/Calamine/Znox 113 GM Tube 1 APPLIC TOPICAL ×2 (09:42→21:59)
[2024-07-14] MEDS: Aspirin 81 MG TAB.CHEW PO (09:42)
[2024-07-14] MEDS: Sucralfate 1 GM Tablet PO (09:43)
[2024-07-14] MEDS: Citalopram 20 MG Tablet PO (09:43)
[2024-07-14] MEDS: Tamsulosin HCl 0.4 MG Capsule 0.8 MG PO (09:44)
[2024-07-14] MEDS: Polyethylene Glycol 3350 17 GM PACKET PO (09:45)
[2024-07-14] MEDS: Magnesium Chloride 64 MG Delay Rel.Tablet PO (09:45)
[2024-07-14] MEDS: Senna/Docusate Sodium 1 Tablet 2 TABLET PO (09:46)
[2024-07-14] MEDS: Cyanocobalamin 500 MCG Tablet 1000 MCG PO (09:46)
[2024-07-14] MEDS: Finasteride 5 MG Tablet PO (09:46)
[2024-07-14] MEDS: Cholecalciferol (Vit D3) 125 MCG CAPSULE (5,000 UNITS) PO (09:47)
[2024-07-14 10:00] VITALS: PULSE 94; RESP 16; O2SAT 97
[2024-07-14 13:03] VITALS: BP 99/52; PULSE 94; RESP 16; TEMP 36.4; O2SAT 93
--- NOTE | 2024-07-14 14:56 | NURSING ---
PT HAS NOT HAD A BM IN 3 DAYS.ASKED PT IF HE WOULD TAKE A PRN MAG CITRATE,PT REFUSED.
--- NOTE | 2024-07-14 15:20 | CASEMGMT ---
Social Work- SW administered BIMS assessment; pt score 10/15. Pt scored 0/2 on PHQ9. SW answered questions regarding discharge plans tomorrow. Pt will discharge 07/15 between - with [facility]. JENNIFER Kelly
[2024-07-14] MEDS: Atorvastatin Calcium 20 MG Tablet PO (21:56)
[2024-07-14] MEDS: Gabapentin 300 MG Capsule PO (21:56)
[2024-07-14] MEDS: Mirtazapine 30 MG Tablet PO (21:56)
[2024-07-15] MEDS: Enoxaparin 40 MG/0.4 ML Syringe SC (06:20)
[2024-07-15] MEDS: Acetaminophen 500 MG Tablet 1000 MG PO (06:22)
[2024-07-15] MEDS: Pantoprazole Sodium 40 MG Tablet PO (06:22)
[2024-07-15] MEDS: Carbidopa/Levodopa 25/100 Tablet PO (06:22)
[2024-07-15] MEDS: Ensure Plus High Protein 120 ML LIQUID PO (06:23)
[2024-07-15] MEDS: Cholecalciferol (Vit D3) 125 MCG CAPSULE (5,000 UNITS) PO (09:10)
[2024-07-15] MEDS: Aspirin 81 MG TAB.CHEW PO (09:10)
[2024-07-15] MEDS: Magnesium Chloride 64 MG Delay Rel.Tablet PO (09:10)
[2024-07-15] MEDS: Cyanocobalamin 500 MCG Tablet 1000 MCG PO (09:10)
[2024-07-15] MEDS: Finasteride 5 MG Tablet PO (09:11)
[2024-07-15] MEDS: Citalopram 20 MG Tablet PO (09:11)
[2024-07-15] MEDS: Tamsulosin HCl 0.4 MG Capsule 0.8 MG PO (09:11)
[2024-07-15] MEDS: Menthol/Lanolin/Calamine/Znox 113 GM Tube 1 APPLIC TOPICAL (09:13)
[2024-07-15] MEDS: Sucralfate 1 GM Tablet PO (10:33)
[2024-07-15 10:34] VITALS: BP 98/60; PULSE 75; RESP 18; TEMP 36.4; O2SAT 95
== END 2024-07-15 10:58 | disposition home health service (06) | DRG 552 ==
PROVIDERS: Admitting Provider Family Medicine Geriatric Medicine; PCP Student in an Organized Health Care Education/Training Program; Visit Provider Family Medicine Geriatric Medicine
DX: M48.061 Spinal stenosis, lumbar region without neurogenic claudication (principal); E11.65 Type 2 diabetes mellitus with hyperglycemia; E11.40 Type 2 diabetes mellitus with diabetic neuropathy, unspecified; E53.8 Deficiency of other specified B group vitamins; B35.4 Tinea corporis; G20.A1 Parkinson's disease without dyskinesia, without mention of fluctuations; J44.9 Chronic obstructive pulmonary disease, unspecified; I10 Essential (primary) hypertension; F32.A Depression, unspecified; E55.9 Vitamin D deficiency, unspecified; K21.9 Gastro-esophageal reflux disease without esophagitis; E78.5 Hyperlipidemia, unspecified; F41.9 Anxiety disorder, unspecified; I25.10 Atherosclerotic heart disease of native coronary artery without angina pectoris; M54.16 Radiculopathy, lumbar region; E83.42 Hypomagnesemia; F17.210 Nicotine dependence, cigarettes, uncomplicated; N40.0 Benign prostatic hyperplasia without lower urinary tract symptoms; Z79.899 Other long term (current) drug therapy; Z79.82 Long term (current) use of aspirin; N48.89 Other specified disorders of penis
CPT/HCPCS: 36415; 80048; 80061; 82306; 82607; 85025; 92507; 92523; 92526; 92610; 97110; 97112; 97116; 97129; 97130; 97162; 97165; 97530; 97535; 97802

== ENCOUNTER 2024-06-22 10:27 | Day surgery (SDC) | payer MEDICARE, SELFPAY ==
--- NOTE | 2024-06-22 10:27 | OP_ITS ---
Problems Associated Problem List Diagnoses (1) Lumbar radiculopathy, acute: Operative Report (Standard) Operative Information Date of Procedure: 06/22/24 Pre-Operative Diagnosis: Lumbar radiculopathy Post-Operative Diagnosis: Same Surgery/Procedure Performed: Left L3-L4 TFESI hose inspector and patcher: No Type of Anesthesia: Local Procedure Start Time: 11:55 (Proper times per nursing records) Procedure Stop Time: 12:02 (Proper times per nursing records) Select all DRAINS/GRAFTS/IMPLANTS that apply: None Estimated Blood Loss: nil Specimen collected: No Description of surgery: Vital signs were checked and the patient was moved to the procedure area and placed in the prone position. Sterile prep and drape was performed in a regular manner. Using fluoroscopic guidance, the required level was identified under AP and oblique views. Local anesthesia was administered using 25g needle using bupivacaine 0.25% to anesthetize the skin and subcutaneous tissue. A 22- gauge spinal needle was placed under fluoroscopic guidance until reaching the 6 o`clock position of the pedicle above the desired foramen, the needle was gradually walked down to the upper portion of the desired foramen, and the needle was then slightly advanced into the foramen. The position was confirmed with fluoroscopy using AP lateral and oblique views as required. Contrast material, Omnipaque 2cc was injected under fluoroscopic guidance and showed appropriate epidurogram, epidural spread. Negative blood and CSF aspiration was confirmed. The same procedure was repeated at each desired level. After confirmation of needles position, a mixture of 2 cc Bupivacaine 0.25% and 40 mg of kenalog was injected and divided between the levels. The patient tolerated the procedure well. [place] were removed intact. The patient was cleansed and Band-Aid was applied. Surgical Findings: n/a Complications Complications: No
--- NOTE | 2024-06-22 10:30 | RAD_ITS ---
PROCEDURE: OR-STEROI/EPI INJ/LUM SAC/2NDL 06/22/2024 REASON FOR EXAM: PAIN TECHNIQUE: Intraoperative fluoroscopic services provided for epidural steroid injection. Fluoroscopy: 20.8 seconds. 10.05 mGy. 2 intraoperative images provided. COMPARISON: None FINDINGS: Intraoperative fluoroscopic services provided for epidural steroid injection. RAD/OR-Steroi/Epi Inj/Lum Sac/2ndL IMPRESSION: Fluoroscopic services provided for epidural steroid injection. Reading Location: [facility]
[2024-06-22 10:57] VITALS: BP 121/72; PULSE 65; RESP 18; TEMP 36.4; O2SAT 94; BMI 25.0
[2024-06-22 11:51] VITALS: BP 127/76; BP 129/75; BP 131/71; BP 143/83; O2SAT 94; O2SAT 95; O2SAT 96
[2024-06-22] MEDS: Bupivacaine 0.25% 30 ML Vial (12:03)
[2024-06-22] MEDS: Triamcinolone Acetonide 40 MG/ML Vial (12:03)
--- NOTE | 2024-06-22 12:24 | SUR.PHASEII ---
Report sent to nurse Moraes on TCU. OK to return to department.
== END 2024-06-22 12:41 | disposition home or self-care (01) ==
LOC: SDC 10:29 → AC 10:29
PROVIDERS: PCP Student in an Organized Health Care Education/Training Program; Referring Provider Anesthesiology; Visit Provider Anesthesiology
PROC: 3E0S3BZ Introduction of Anesthetic Agent into Epidural Space, Percutaneous Approach (ICD-10-PCS; CPT 62322; principal; 2024-06-22 11:25)
DX: M54.16 Radiculopathy, lumbar region (principal); J44.9 Chronic obstructive pulmonary disease, unspecified; E11.9 Type 2 diabetes mellitus without complications; I10 Essential (primary) hypertension
CPT/HCPCS: 64483; 76000; A4216